=== PATIENT | male | born 1955 | race Caucasian/White ===

== ENCOUNTER 2020-12-28 12:08 | Observation (INO) | payer MEDICARE, MEDICAID, SELFPAY ==
[2020-12-28] VITALS (10 sets, daily range): BP systolic 106–130; BP diastolic 61–77; PULSE 71–115; RESP 16–20; TEMP 36.6–37.1; O2SAT 94–100; BMI 19.0; BMI 17.6
--- NOTE | 2020-12-28 12:22 | CT_ITS ---
PROCEDURE: CT HEAD/BRAIN WO CON CLINICAL INDICATION: AMS Altered mental status, altered level of consciousness, confusion, disorientation COMPARISON: No exams were available for comparison TECHNIQUE: Axial images obtained. All CT scans at the facility use one or more dose reduction, viz: automated exposure control, ma/kV adjustment per patient size (including targeted exams where dose is matched to indication, i.e. head), or iterative reconstruction technique. FINDINGS: No midline shift, mass effect, intracranial hemorrhage, or extra-axial fluid collection is evident. There is generalized atrophy with hypoattenuation of the periventricular white matter consistent with microangiopathic changes. The ventricles are slightly prominent but may be due to the mild degree of atrophy. Small subtle area of decreased density is present in the anterior limb of the right internal capsule. This measures 5 mm. Subacute or chronic lacunar infarction is considered. The calvarium has an unremarkable appearance. No mastoid effusion. No sinus air-fluid level. IMPRESSION: 1. No definite acute intracranial findings. 2. Possible subacute or chronic small lacunar infarction in the anterior limb of the right internal capsule. Dictated by: Farooq Nieto MD 12/28/2020 12:51 Farooq Nieto MD in [place] 12/28/2020 12:51
--- NOTE | 2020-12-28 12:24 | HMH.EDGENADL ---
ED Disposition Clinical Impression: Brain ischemia Anemia Qualifiers: Anemia type: unspecified type Qualified Code(s): D64.9 - Anemia, unspecified Disposition: Admitted As Inpatient Condition on Discharge: Good - Critical Care Critical Care Time: No Attestation: On 12/28/20, the high probability of a clinically significant, sudden or life threatening deterioration of the following system(s) required my full and direct attention, intervention and personal management. The time I documented below is in addition to time spent performing reported procedures but includes the following listed in this critical care notation. Medical Decision Making - Medical Records Medical records reviewed: Yes: I reviewed the patient's medical records. - Ranjeet Inquiry Pt receiving controlled substance: No Vital Signs: 12/28/20 12:08 12/28/20 12:30 Temperature 98.3 F Temperature Source Oral Pulse Rate 106 H Pulse Rate [Right] 110 H Respiratory Rate 16 18 Blood Pressure 115/73 Blood Pressure [Right Arm] 113/68 Blood Pressure Mean 78 Blood Pressure Mean [Right Arm] 83 02 Sat by Pulse Oximetry 95 97 Oxygen Delivery Method Room Air - Lab Data Lab results reviewed: Yes: I reviewed the patient's lab results. Lab Results 12/28/20 13:11: WBC 13.4 H, RBC 3.02 L, Hgb 7.8 L*, Hct 25.8 L, MCV 85.3, MCH 25.7 L, MCHC 30.2 L, RDW 18.0 H, Plt Count 548 H, MPV 7.4, Neut % (Auto) 88.8 H, Lymph % (Auto) 4.7 L, [place] % (Auto) 6.1, Eos % (Auto) 0.3, Baso % (Auto) 0.2, Neut # (Auto) 11.9 H, Lymph # (Auto) 0.6 L, [place] # (Auto) 0.8, Eos # (Auto) 0.1, Baso # (Auto) 0.0 12/28/20 13:11: Sodium 131 L, Potassium 3.8, Chloride 93 L, Carbon Dioxide 32 H, Anion Gap 9.8, BUN 25 H, Creatinine 0.80, Estimated Creat Clear 66, Estimated GFR 97, Est GFR ( Amer) 117, Glucose 138 H, Calcium 10.0, Total Bilirubin 0.4, AST 39, ALT 21, Alkaline Phosphatase 139 H, Total Protein 7.5, Albumin 3.0 L, Globulin 4.5 H, Albumin/Globulin Ratio 0.7 L 12/28/20 13:11: Plasma/Serum Alcohol < 10 12/28/20 13:12: Urine Color Yellow, Urine Appearance Clear, Urine pH 5.5, Ur Specific [place] >= 1.030, Urine Protein 1+, Urine Glucose (UA) Negative, Urine Ketones Negative, Urine Blood 2+, Urine Nitrate Negative, Urine Bilirubin 1+ A, Urine Urobilinogen 1.0, Ur Leukocyte Esterase Negative, Urine RBC 3-5, Urine WBC 3-5, Ur Squamous Epith Cells 3-5, Urine Bacteria None 12/28/20 13:12: Urine Opiates Screen Negative, Urine Methadone Screen Negative, Ur Barbituates Screen Negative, Ur Phencyclidine Scrn Negative, Ur Amphetamines Screen Negative, U Benzodiazepines Scrn Negative, Urine Cocaine Screen Negative, U Marijuana (THC) Screen Negative 12/28/20 13:34: Ammonia < 9 L Result diagrams: 12/28/20 13:11 12/28/20 13:11 Orders (Tests/Meds): ED MEDICATIONS Generic Name Dose Route Start Last Admin Trade Name Freq PRN Reason Stop Dose Admin Acetaminophen 650 mg 12/28/20 13:52 Acetaminophen 325mg Tab PO 01/27/21 13:51 Q4HP PRN Fever or Mild Pain Sodium Chloride 1,000 mls @ 999 mls/hr 12/28/20 13:15 12/28/20 13:19 Sod Chlor 0.9% 1000ml Bag IV 12/28/20 14:15 999 mls/hr .Q1H1M YENNI Administration Ondansetron HCl 4 mg 12/28/20 13:52 Ondansetron 4mg/2ml Vial IV 01/27/21 13:51 Q8HP PRN Nausea ORDERS Category Date Time Status Complete Blood Count Auto Diff Stat Lab 12/28/20 13:11 Results Comprehensive Metabolic Panel Stat Lab 12/28/20 13:11 Results Covid-19 Nasal PCR ([facility]) Routine Lab 12/28/20 13:50 Ordered Free T4 (Free Thyroxine) Stat Lab 12/28/20 13:11 Received Thyroid Stimulating Hormone Stat Lab 12/28/20 13:11 Results Troponin I Q3H Lab 12/28/20 15:30 Ordered Troponin I Q3H Lab 12/28/20 18:30 Ordered Troponin I Stat Lab 12/28/20 13:11 Results ECG Request by /Cuco Stat Y 12/28/20 12:20 Ordered - CT Data CT Scan: Head Time Received: 13:05 Findings Narrative: 1. No definite acute intracranial findings.
--- NOTE | 2020-12-28 12:34 | PC.NURSE ---
SPOKE WITH CHELSEY FROM [facility] AND RECEIVED A MORE ACCURATE MEDICAL HX
--- NOTE | 2020-12-28 13:03 | ECG_ITS ---
APPROVED REPORT Exam: Resting ECG HR:97 bpm ECG Measurements Heart Rate 97 AXES VA 106 P 79 QRSd 82 QRS 91 QT 328 T 65 QTc 416 Conclusion Sinus rhythm with short VA Rightward axis Minimal voltage criteria for LVH, may be normal variant Borderline ECG Electronically signed by : Boy Cho, 12/29/2020 09:07:06
[2020-12-28 13:23] LABS: Microscopic, Urine URINE MICROSCOPIC (MICROSCOPIC)
[2020-12-28 13:27] LABS: Basophils % 0.2 % (0.1-2.0); Eosinophils # 0.1 K/mm3 (0.0-0.4); Eosinophils % 0.3 % (0.1-12.0); Hematocrit 25.8 % (42.0-52.0); Lymphocytes # 0.6 K/mm3 (0.7-4.5); Lymphocytes % 4.7 % (10-50); Mean Corpuscular HGB Conc 30.2 g/dL (31.8-35.4); Mean Corpuscular Hemoglobin 25.7 pg (27.0-31.2); Mean Corpuscular Volume 85.3 fl (80-94); Mean Platelet Volume 7.4 fl (7.4-10.4); Monocytes # 0.8 K/mm3 (0.1-1.0); Monocytes % 6.1 % (1.7-9.3); Neutrophils # 11.9 K/mm3 (1.8-7.8); Neutrophils % 88.8 % (37.0-80.0); Platelet Count 548 K/mm3 (142-424); Red Blood Count 3.02 M/mm3 (4.60-6.20); White Blood Count 13.4 K/mm3 (4.8-10.8)
[2020-12-28 13:29] LABS: Appearance,Urine CLEAR (Clear); Bilirubin,Urine 1+ (Negative); Blood, Urine 2+ (Negative); Color,Urine YELLOW (Yellow); Glucose,Urine (UA) Negative (Negative); Ketones,Urine Negative (Negative); Leukocyte Esterase,Urine Negative (Negative); Nitrate,Urine Negative (Negative); PH,Urine 5.5 (5.0-8.5); Protein,Urine 1+ (Negative); Specific Gravity, Urine >= 1.030 (1.005-1.030)
[2020-12-28 13:34] LABS: Hemoglobin 7.8 g/dL (14.1-18.0)
[2020-12-28 13:35] LABS: Chloride 93 mmol/L (98-107); MANUAL DIFFERENTIAL MANUAL DIFFERENTIAL (MANUAL DIFF); Potassium 3.8 mmoL/L (3.5-5.1); Sodium 131 mmol/L (136-145)
[2020-12-28 13:38] LABS: Alanine Aminotransferase 21 U/L (12-78); Albumin/Globulin Ratio 0.7 (1.1-1.8); Alkaline Phosphatase 139 U/L (38-126); Anion Gap 9.8 mEq/L (5-15); Aspartate Amino Transferase 39 U/L (17-59); Bilirubin,Total 0.4 mg/dl (0.2-1.3); Blood Urea Nitrogen 25 mg/dl (9-20); Carbon Dioxide 32 mmol/L (22.0-30.0); Creatinine Clearance Estimated 66 mL/min (50-200); Estimated Glomerular Filt Rate 97 ml/min (>60); GFR (African American) 117 ML/MIN (>60); Globulin 4.5 g/dL (1.3-3.2); Total Protein,Serum 7.5 g/dl (6.3-8.2)
[2020-12-28 13:39] LABS: Glucose 138 mg/dl (74-100)
[2020-12-28 13:40] LABS: Ethyl Alcohol < 10 mg/dl (0-10)
[2020-12-28 13:41] LABS: Amphetamine/Metha Screen,Urine Negative ng/ml (<1000); Benzodiazepines Screen,Urine Negative ng/ml (<200)
[2020-12-28 13:43] LABS: Cannabinoid Screen,Urine Negative ng/ml (<50)
[2020-12-28 13:44] LABS: Cocaine Screen,Urine Negative ng/ml (<300); Methadone Screen,Urine Negative ng/ml (<300)
[2020-12-28 13:46] LABS: Phencyclidine Screen,Urine Negative ng/ml (<25)
[2020-12-28 13:50] LABS: Barbiturates Screen,Urine Negative ng/ml (<200)
--- NOTE | 2020-12-28 13:50 | PC.NURSE ---
Dr Altman spoke with Dr Mcnamara
[2020-12-28 13:51] LABS: Ammonia < 9 umol/L (9-30)
[2020-12-28 13:53] LABS: Opiate Screen,Urine Negative ng/ml (<300)
[2020-12-28 13:59] LABS: Troponin I < 0.01 ng/ml (0.00-0.034)
--- NOTE | 2020-12-28 14:00 | PC.NURSE ---
Staff senior human resources representative from [facility] notified of admission and provided the name of the state guardian (Mary Alice Bear).
--- NOTE | 2020-12-28 14:09 | PC.NURSE ---
Went in room to swab pt for covid for admission, pt refused to have swab done stating that he had been vaccinated and he didn't need to be swabbed. Pt is also refusing to be admitted. Stating that he doesn't need to be admitted he has been here before and not admitted. Pt nurse Jose comes into room and is able to get pt to agree to do the swab.
--- NOTE | 2020-12-28 14:14 | PC.NURSE ---
GLENYS HADDAD, PT STATE GUARDIAN NOTIFIED OF ADMISSION AND GLENYS INFORMED EM LINCOLN THAT SHE WILL OBTAIN A COURT ORDER FOR ADMISSION IF THE PATIENT REFUSES
--- NOTE | 2020-12-28 14:53 | PC.NURSE ---
GLENYS HADDAD (STATE GUARDIAN) CONSENTED TO ADMISSION
[2020-12-28 15:03] LABS: Lymphocytes % 4 % (10-50); Monocytes % 9 % (2-9); Neutrophils % 87 % (42-76); Total Cells Counted 100
[2020-12-28 15:04] LABS: Hypochromasia 2+; Microcytosis 1+; Platelet Estimate Slight Increase; Spherocytes 1+
[2020-12-28 15:41] LABS: Thyroid Stimulating Hormone 0.99 uIU/mL (0.465-4.68)
--- NOTE | 2020-12-28 16:21 | PC.NURSE ---
25 mins left on covid swab per ivelisse in the lab.
--- NOTE | 2020-12-28 17:02 | PC.NURSE ---
GAVE REPORT TO MISTY FLOOR NURSE AT THIS TIME
--- NOTE | 2020-12-28 17:04 | PC.NURSE ---
165 Report received from LATONIA Garcia in ER.
--- NOTE | 2020-12-28 17:26 | PC.NURSE ---
1718 Pt transported to room 202 via wheelchair by [facility] staff, tolerated transport well. 1722 Lab personnel at bedside with pt.
--- NOTE | 2020-12-28 17:29 | PC.NURSE ---
1728 SRNA informed RN that he is refusing to wear a heart monitor, said there is no need in all of this. Pt cooperating with lab personnel at this time, will continue to monitor.
[2020-12-28 17:54] LABS: Free T4 (Free Thyroxine) 2.05 ng/dl (0.78-2.19)
--- NOTE | 2020-12-28 18:24 | PC.NURSE ---
While discussing code status with pt, he decides that he wants to be a DNR. RN discussed full code status with pt and he said I don't have a bad heart. Discussed with pt in the event that he became unresponsive, is staff able to do chest compressions and other life saving measures, pt reported no, that's all right. Let me go. Pt is a velazquez of the state, will discuss with guardian.
--- NOTE | 2020-12-28 18:33 | PC.NURSE ---
183 Attempted to call Mary Alice Bear, guardian, no answer.
--- NOTE | 2020-12-28 18:40 | PC.NURSE ---
1840 Unable to get in contact with state guardian to verify code status, pt will remain a full code at this time.
--- NOTE | 2020-12-28 18:51 | PC.NURSE ---
1851 Spoke to after hours state guardianship, verified that pt is a full code.
--- NOTE | 2020-12-28 19:02 | XR_ITS ---
PROCEDURE INFORMATION: Exam: XR Chest Exam date and time: 12/28/2020 7:02 PM Age: 65 years old Clinical indication: Other: Abnormal cxr, smoker TECHNIQUE: Imaging protocol: XR of the chest. Views: 1 view. COMPARISON: No relevant prior studies available. FINDINGS: Lungs: Near complete opacification of the left upper lobe is present with interstitial prominence noted throughout both lungs. Underlying mass within the left upper lobe cannot be excluded. The lungs are hyperinflated, consistent with underlying small airways disease. Bronchiectatic changes noted within the lung bases. Pleural spaces: Unremarkable. No pleural effusion. No pneumothorax. Heart/Mediastinum: Calcified hilar lymph nodes. Bones/joints: The thoracic spine demonstrates mild degenerative changes at multiple levels. IMPRESSION: 1. Near complete opacification of the left upper lobe is present with interstitial prominence noted throughout both lungs. 2. Underlying mass within the left upper lobe cannot be excluded. Further evaluation with CT of the chest with and without contrast is recommended. 3. The lungs are hyperinflated, consistent with underlying small airways disease. 4. Bronchiectatic changes noted within the lung bases.
--- NOTE | 2020-12-28 19:05 | ECG_ITS ---
APPROVED REPORT Exam: Resting ECG HR:112 bpm ECG Measurements Heart Rate 112 AXES CO 124 P 85 QRSd 84 QRS 93 QT 302 T 69 QTc 412 Conclusion Sinus tachycardia Rightward axis Borderline ECG Electronically signed by : Byo Cho, 12/29/2020 09:06:40
--- NOTE | 2020-12-28 19:07 | HMH.HP ---
*Admission Date: 12/28/20 *Chief complaint: near syncope *History of present illness: This 65-year-old male who presents to the emergency department from assisted living for concerns of possible seizure. Patient states he did not have a seizure and remembers the entire episode. He has not been drinking much water for 2 weeks because he does not think that it tastes good. He states that he felt really hot today, so he laid down on the ground and was shaking from the heat, but remembers the entire episode. He does not have any urinary symptoms, no chest pain or shortness of breath. He has not had any recent fevers or vomiting, no diarrhea. He has no known history of seizures. No headache and there was no postictal state. FSBS 177 Labs that show anemia. We later received report from the assisted living facility that he has had some concerning findings on chest x-ray for possible pathology, cancer considered, but patient has been refusing CT scan of the chest. Anemia could be anemia of chronic disease, but this will need further evaluation and work-up. CT scan of the head shows subacute versus chronic lacunar infarct. Patient has no lateralizing motor or sensory changes and this can be further evaluated inpatient as well. Certainly not an acute CVA and not a candidate for TPA. I discussed this case with Dr. Mcnamara and patient will be admitted for further management. The patient is a very poor historian, is not forthcoming with a lot of information. He denies that he has a seizure disorder, and denies that he had a seizure. Patient underwent a CT of his brain. Results are as follows FINDINGS: No midline shift, mass effect, intracranial hemorrhage, or extra-axial fluid collection is evident. There is generalized atrophy with hypoattenuation of the periventricular white matter consistent with microangiopathic changes. The ventricles are slightly prominent but may be due to the mild degree of atrophy. Small subtle area of decreased density is present in the anterior limb of the right internal capsule. This measures 5 mm. Subacute or chronic lacunar infarction is considered. The calvarium has an unremarkable appearance. No mastoid effusion. No sinus air-fluid level. IMPRESSION: 1. No definite acute intracranial findings. 2. Possible subacute or chronic small lacunar infarction in the anterior limb of the right internal capsule. She was reported to have an abnormal chest x-ray. He adamantly refused CT imaging of his chest. We will try to get a portable film tonight. He reports that he is eating and drinking without problems. By history given to the emergency room his p.o. intake has been diminished for the last 2 weeks. We will hydrate him with IV fluid to supplement his p.o. intake. Denies nausea vomiting emesis or chest pain. We will hope that he is cooperative with a chest film. Attempt to get a portable x-ray tonight to further delineate findings. Patient is alert and verbal. He denies headache, chest pain, dyspnea, abdominal pain. His facial fractions are symmetric. His motor expert is 5 out of 5 bilaterally. He raises both feet against gravity, dorsiflexes and plantar flexes the feet. He appears to have no focal neurologic deficit. [facility] History Medical History: Reports:: Hypertension *Have you ever received a pneumonia vaccine?: No *Have you received a flu vaccine this season?: Yes Other Medical History: Reports: Anemia, Other (Psychiatric history) - *Social History Last grade of school completed: High school graduate Smoking Status: Current every day smoker Tobacco Type: cigarettes # Packs/Day (cigarettes): 1 Alcohol Intake: never *Occupational Status:: unemployed Housing: assisted living facility *Travel in the last 8 weeks: None Family Hx:: Unable to obtain Review of Systems - Constitutional Reports anorexia, Reports malaise - Eyes Denies change in vision - ENT Denies abnormal hearing, Denies h
[2020-12-28 19:50] LABS: Iron 20 ug/dL (49-181)
[2020-12-28 20:00] LABS: Total Iron Binding Capacity 265 ug/dL (261-462)
[2020-12-28 20:08] LABS: Valproic Acid, (Depakene) < 10.0 ug/ml (50-100)
--- NOTE | 2020-12-28 20:20 | PC.NURSE ---
WITH PT ASSESSMENT,IT WAS GIVEN IN REPORT PT HAD 2 IV ACCESSES RAC AND LAC,PT REPORTS THEY JUST FELL OUT AND HE DID NOT NEED THEM ANYWAY,DRINKING WATER WAS ALL HE NEEDED.TECH SAID THAT HE HAD PULLED THE IV OUT WHEN SHE TRIED TO GET V/S ,HE HAD REFUSED V/S TOO,BUT AGREED TO THEM JUST THIS ONCE,SEE CHARTING.TOLD HIM THAT HE HAD FLUIDS ORDERED AND HE REALLY NEEDED AN IV,PT REFUSED TO BE STUCK.
--- NOTE | 2020-12-28 22:40 | PC.NURSE ---
AFTER SEVERAL ATTEMPTS TO REACH ABOUT PT PULLING HIS IVS OUT AND WAS REFUSING TO HAVE THEM RESTARTED,WAS ABLE TO LET HIM KNOW THIS AND HE SAID TO JUST DOCUMENT PT REFUSED
[2020-12-29 03:58] VITALS: BP 116/67; PULSE 114; RESP 20; TEMP 36.9; O2SAT 92
--- NOTE | 2020-12-29 04:09 | PC.NURSE ---
PT HAS REFUSED CARE ALL NIGHT,WAS ABLE TO GET PT TO LET ME GET HIS V/S THIS MORNING AND LISTEN TO HIS LUNGS AGAIN,V/S 116/67,P-114 PALPATED RADIAL,R-20,SAT.LEVEL ON RA 92%,ORAL TEMP 98.5,DIMINISHED ON RIGHT SIDE AND RHONCI ON LEFT,PT REPORTS HE IS ABLE TO GET SOME SPUTUM UP AT TIMES AND IT IS CLEAR,PT HAS VOIDED IN URINAL 450 DARK YELLOW URINE.PT REFUSED TO HAVE HIS IV RESTARTED AGAIN.HAD PT TAKE ANOTHER BIG DRINK OF WATER SINCE HE IS NOT LETTING US GIVE HIM FLUIDS,PT DENIES ANY PAIN AT THIS TIME,WILL CONTINUE TO MONITOR
[2020-12-29 06:47] LABS: Basophils % 0.1 % (0.1-2.0); Hematocrit 26.5 % (42.0-52.0); Hemoglobin 8.2 g/dL (14.1-18.0); Lymphocytes # 1.1 K/mm3 (0.7-4.5); Mean Corpuscular HGB Conc 31.1 g/dL (31.8-35.4); Mean Corpuscular Hemoglobin 26.2 pg (27.0-31.2); Mean Corpuscular Volume 84.1 fl (80-94); Mean Platelet Volume 7.5 fl (7.4-10.4); Monocytes # 0.6 K/mm3 (0.1-1.0); Monocytes % 4.8 % (1.7-9.3); Neutrophils # 11.4 K/mm3 (1.8-7.8); Neutrophils % 87.1 % (37.0-80.0); Platelet Count 542 K/mm3 (142-424); Red Blood Count 3.15 M/mm3 (4.60-6.20); Red Cell Distribution Width 18.2 % (11.5-17.5); White Blood Count 13.1 K/mm3 (4.8-10.8)
[2020-12-29 06:51] LABS: MANUAL DIFFERENTIAL MANUAL DIFFERENTIAL (MANUAL DIFF)
[2020-12-29 06:55] LABS: Alanine Aminotransferase 26 U/L (12-78); Albumin Level 2.9 g/dl (3.5-5.0); Albumin/Globulin Ratio 0.6 (1.1-1.8); Alkaline Phosphatase 145 U/L (38-126); Anion Gap 6.5 mEq/L (5-15); Aspartate Amino Transferase 44 U/L (17-59); Bilirubin,Total 0.5 mg/dl (0.2-1.3); Blood Urea Nitrogen 17 mg/dl (9-20); Calcium 9.7 mg/dl (8.4-10.2); Carbon Dioxide 32 mmol/L (22.0-30.0); Chloride 95 mmol/L (98-107); Creatinine Clearance Estimated 61 mL/min (50-200); Estimated Glomerular Filt Rate 113 ml/min (>60); GFR (African American) 137 ML/MIN (>60); Globulin 4.5 g/dL (1.3-3.2); Glucose 110 mg/dl (74-100); Potassium 4.5 mmoL/L (3.5-5.1); Sodium 129 mmol/L (136-145); Total Protein,Serum 7.4 g/dl (6.3-8.2)
--- NOTE | 2020-12-29 07:13 | P.CONPHA_ITS ---
[facility] Pharm[facility] VTE Monitoring - Patient Demographics Admission date: 12/29/20 Report Date: 12/29/20 Time: 07:13 Allergies/Adverse Reactions: Patient Allergies No Known Allergies Allergy (Unverified 07/29/17 14:12) Height: 1.83 m Weight: 58.967 kg Patient Problems: Current Active Problems Anemia (Acute) Brain ischemia (Acute) Anemia (Chronic) - VTE Risk Labs: VTE Related Lab Results Hgb 8.2 g/dL (14.1-18.0) L 12/29/20 06:18 Hct 26.5 % (42.0-52.0) L 12/29/20 06:18 Plt Count 542 K/mm3 (142-424) H 12/29/20 06:18 BUN 17 mg/dl (9-20) D 12/29/20 06:18 Creatinine 0.70 mg/dl (0.66-1.25) 12/29/20 06:18 Estimated Creat Clear 61 mL/min (50-200) 12/29/20 06:18 VTE Score: 1 VTE Risk Level: Low Risk Clinical Trial Participant: No - Prophylaxis VTE Prophylaxis Ordered?: Yes Types of VTE Prophylaxis: TEDS Knee High
--- NOTE | 2020-12-29 07:16 | HMH.PHAINT ---
home medication list from [facility] used to clarify home medication list at [facility]
[2020-12-29 07:26] LABS: Thyroid Stimulating Hormone 0.71 uIU/mL (0.465-4.68)
[2020-12-29 07:41] VITALS: BP 107/61; PULSE 129; RESP 22; TEMP 36.9; O2SAT 93
--- NOTE | 2020-12-29 08:21 | CT_ITS ---
PROCEDURE: CT CHEST WO CON CLINICAL INDICATION: MASS Evaluate left upper lobe mass COMPARISON: CR XR CHEST PORTABLE from 12/28/2020 TECHNIQUE: Axial images obtained with sagittal and coronal reformats. All CT scans at the facility use one or more dose reduction, viz: automated exposure control, ma/kV adjustment per patient size (including targeted exams where dose is matched to indication, i.e. head), or iterative reconstruction technique. FINDINGS: IV contrast was not utilized for the exam somewhat limiting evaluation of the pulmonary findings. Enlarged mediastinal lymph nodes are present. The nodes in the AP window measure up 2 2.5 by 1.3 cm. Precarinal nodes are also present. There is a large area of masslike consolidation involving the left upper lobe with extension into the left axilla with destruction of the left 2nd rib laterally. There is also some destruction of the posterior aspect of the left 2nd rib. There are overall dimension of this masslike area of consolidation is 20 cm cephalad caudad, 10 cm transverse, and up to 12 cm AP. Multiple cavities are present within this large mass the largest measuring approximately 4 cm. There are few air-fluid levels within these areas of cavitation. There is dense consolidation involving the left lower lobe adjacent to the mass with also consolidation of the left lower lobe posteriorly with prominent interstitial markings having a somewhat honeycomb appearance. There are numerous noncalcified nodules of the right upper and lower lobe. There is a minimally offset fracture involving the left 6th rib laterally. The soft tissue mass of the left upper lobe extends into the left chest wall and axillary region. There is some cavitation noted within this mass in the axilla. IMPRESSION: Large complex left upper lobe mass with cavitation, rib destruction and extension into the left axilla with some soft tissue gas in the left axilla which may be related to cavitation, necrosis, or abscess involvement. This large mass may be neoplastic in nature as there are multiple small nodular densities in the right upper and right lower lobe suspicious for metastasis. Fungal infection and tuberculosis is included in the differential diagnosis. Left lower lobe pneumonia with somewhat honeycomb appearance Dictated by: Farooq Nieto MD 12/29/2020 09:20 Farooq Nieto MD in [place] 12/29/2020 09:20
[2020-12-29 09:18] VITALS: BMI 17.6
[2020-12-29 09:32] LABS: Hypochromasia 2+; Lymphocytes % 9 % (10-50); Monocytes % 6 % (2-9); Neutrophils % 85 % (42-76); Platelet Estimate Moderate Increase; Total Cells Counted 100
--- NOTE | 2020-12-29 09:37 | SW/DCPLANNER ---
Addendum entered by [facility] 01/02/21 15:01: [facility] [employer] has stated that they will pick this patient up between 4:30PM-5:00PM. I have relayed message to patients nurse (Mar). Addendum entered by [facility] 01/02/21 12:30: I have arranged [facility] [employer] for this patient. ID# [id number] Addendum entered by [facility] 01/02/21 10:07: I have notified patients Guardian (Mary Alice) and left regarding possible cancer diagnosis and discharging back to [facility] today. I have also notified Evelina with [facility] that this patient will discharge back today. Evelina has stated for me to call her back when discharge order is in and she will arrange transportation for this patient. Patient will discharge later today. Original Note: This patient currently resides at [facility]. I have attempted to contact Evelina at [facility] with no answer. I have spoke with patients State Guardian (Mary Alice Bear [phone]). I have informed Mary Alice that the plan for today is: PT/OT Consult, Pulm Consult and Chest CT due to mass on chest x ray. Mary Alice stated that patients family MD is Dr Mike Maria with [facility] in [place]. Patient should discharge home later today and I have informed Mary Alice of this plan as well. I will continue to try to contact Evelina with [facility] regarding plan.
--- NOTE | 2020-12-29 10:26 | HMH.OTEV ---
OT Inpatient Evaluation Rehab OT IP Evaluation Start: 12/29/20 09:35 Freq: ONCE Status: Complete Protocol: Document 12/29/20 10:14 PEDRO (Rec: 12/29/20 10:26 PEDRO [id number]) Rehab OT IP Assessment Subjective History *Admission Date: 12/28/20 *Chief complaint: near syncope *History of present illness: This 65-year-old male who presents to the emergency department from assisted living for concerns of possible seizure. Patient states he did not have a seizure and remembers the entire episode. He has not been drinking much water for 2 weeks because he does not think that it tastes good. He states that he felt really hot today, so he laid down on the ground and was shaking from the heat, but remembers the entire episode. He does not have any urinary symptoms, no chest pain or shortness of breath. He has not had any recent fevers or vomiting, no diarrhea. He has no known history of seizures. No headache and there was no postictal state. FSBS 177 Labs that show anemia. We later received report from the assisted living facility that he has had some concerning findings on chest x-ray for possible pathology, cancer considered, but patient has been refusing CT scan of the chest. Anemia could be anemia of chronic disease, but this will need further evaluation and work-up. CT scan of the head shows subacute versus chronic lacunar infarct. Patient has no lateralizing motor or sensory changes and this can be further evaluated inpatient as well. Certainly not an acute CVA and not a
--- NOTE | 2020-12-29 10:31 | HMH.PTEV ---
Physical Therapy Evaluation Rehab PT IP Evaluation Start: 12/29/20 09:34 Freq: ONCE Status: Active Protocol: Document 12/29/20 10:23 LATOYAJACQUE (Rec: 12/29/20 10:30 [email or web address] [id number]) Subjective/History History History Patient is a 65 year old male admitted to [facility] 12/28/20 after a fall at SNF. Admitting diagnosis of anemia and sub- acute CVA. Most recent CT scan indicates large L upper lobe mass. Subjective Subjective I feel fine. I just get a little short of breath. No dizziness reported with ambulation. Rehab PT IP Eval Objective Appearance Patient Behavior Appropriate Speech Pattern Appropriate Ambulation Patient Able to Ambulate Yes Ambulation Observation IP General Gait Pattern Observation No Deviations/Normal Ambulation Distance (feet) 100 Ambulation Assistive Device None Ambulation Ability Independent Balance Ability to Arise Able, w/o using arms Sitting Balance Steady, safe Standing Balance Narrow stance w/o support Dynamic Sitting Balance Ability Normal Dynamic Standing Balance Ability Normal Transfers Chair Transfer Ability Independent Sit to Stand Chair Transfer Ability Independent ROM All Extremities PT ROM Status WFL MMT All Extremities PT MMT WFL Rehab PT IP prob,goals,plan Problems Date of Evaluation: 12/29/20 Rehab Potential Rehab Potential Good Equipment Needs Assistive Devices None / NA Discharge Plan PT Discharge Plan Patient is independent with all transfers, standing and ambulatory activites. PT suggests discharge back to SNF for continued rehabilitation. G -code Required No Eval Complexity Eval Charge Codes 89591 - Moderate Complexity PHYSICIAN CERTIFICATION: I certify the specified therapy services for Dima Henley are required, authorized, and reviewed every 30 days.
--- NOTE | 2020-12-29 12:05 | HMH.PULMCON ---
*Admission Date: 12/29/20 *Reason for consult:: Lung mass, pneumonia *History of present illness: is a 65-year-old male greater than [id number] smoking history currently smoking, large enough state was presented to the hospital with weakness and shortness of breath found to have a large left upper lobe complicated mass with associated abscess and pulmonary was called for further management. [facility] History Medical History: Reports:: Hypertension *Have you ever received a pneumonia vaccine?: No *Have you received a flu vaccine this season?: Yes Other Medical History: Reports: Anemia, Other (Psychiatric history) - *Social History Last grade of school completed: High school graduate Smoking Status: Current every day smoker Tobacco Type: cigarettes # Packs/Day (cigarettes): 1 Alcohol Intake: never *Occupational Status:: unemployed Housing: assisted living facility *Travel in the last 8 weeks: None Family Hx:: Unable to obtain ROS - Cons Reports anorexia, Reports fatigue, Reports lack of energy, Reports weakness - ENT Reports hearing loss - Card Reports shortness of breath, Reports shortness of breath with activity - Resp Respiratory: Reports cough, Reports dyspnea, Reports dyspnea on exertion, Denies coughing up blood, Reports cough with sputum production - Musk Musculoskeletal: Reports joint pain Meds Home Medications Medication Instructions Recorded Confirmed Type Albuterol Sulfate [Albuterol 1 puff PO Q4HP PRN 12/28/20 12/29/20 History Sulfate Hfa] Cholecalciferol (Vitamin D3) 2,000 units PO DAILY 12/28/20 12/28/20 History [Vitamin D3 1,000 Unit Cap] Divalproex Sodium [Depakote] 250 mg PO HS 12/28/20 12/29/20 History Potassium Chloride 10 meq PO BID 12/28/20 12/29/20 History hydrOXYzine HCL [Hydroxyzine HCl] 50 mg PO HS 12/28/20 12/28/20 History risperiDONE [Risperidone] 3 ml PO BID 12/28/20 12/28/20 History Cyclobenzaprine HCl 5 mg PO TIDP PRN 12/29/20 12/29/20 History [Cyclobenzaprine 5mg Tab*] Allergies Allergy/AdvReac Type Severity Reaction Status Date / Time No Known Allergies Allergy Unverified 07/29/17 14:12 Exam - Constitutional Constitutional:: Present: no acute distress, comfortable - HENMT Exam HENMT: Present: normocephalic, atraumatic - Neck Exam Neck:: Present: normal visual inspection - Respiratory Exam Respiratory:: Present: able to speak in complete sentences, no respiratory distress, crackles. Absent: wheezing - Cardiovascular Exam Cardiac:: Present: S1, S2 - GI Exam GI:: Present: soft - Skin Exam Skin: Present: warm, no rash - Neurological Exam Neurological: Present: alert, awake, normal cognition - Extremities Exam Extremities: Present: no cyanosis, no clubbing, no edema Internal Medicine - CN: Reslt - Labs CBC & Chem 7: 12/29/20 06:18 12/29/20 06:18 Labs: Short CBC 12/28/20 12/29/20 Range/Units 13:11 06:18 WBC 13.4 H 13.1 H (4.8-10.8) K/mm3 Hgb 7.8 L* 8.2 L (14.1-18.0) g/dL Hct 25.8 L 26.5 L (42.0-52.0) % Plt Count 548 H 542 H (142-424) K/mm3 BMP 12/28/20 12/29/20 13:11 06:18 Sodium 131 L 129 L Potassium 3.8 4.5 Chloride 93 L 95 L Carbon Dioxide 32 H 32 H BUN 25 H 17 D Creatinine 0.80 0.70 Glucose 138 H 110 H D Calcium 10.0 9.7 Cardiac Enzymes 12/28/20 Range/Units 13:11 Troponin I < 0.01 (0.00-0.034) ng/ml Liver Function 12/28/20 12/29/20 Range/Units 13:11 06:18 Total Bilirubin 0.4 0.5 (0.2-1.3) mg/dl AST 39 44 (17-59) U/L ALT 21 26 (12-78) U/L Alkaline Phosphatase 139 H 145 H (38-126) U/L Albumin 3.0 L 2.9 L (3.5-5.0) g/dl Urine 12/28/20 Range/Units 13:12 Urine Color Yellow (Yellow) Urine Appearance Clear (Clear) Urine pH 5.5 (5.0-8.5) Ur Specific [place] >= 1.030 (1.005-1.030) Urine Protein 1+ (Negative) Urine Glucose (UA) Negative (Negative) Assessment and Plan (1) Anemia Stat
--- NOTE | 2020-12-29 14:39 | DIET.NUTRFU ---
Addendum entered by Neha Sharma 01/01/21 12:43: Pt has eaten very well, 100% of most meals + BID protein supplements. Weight stable. He has not had a BM and does not remember date of last BM. No changes nutritional care plan at this time, continuing to monitor. Original Note: Pt with severe protein calorie malnutrition rt unknown etiology (possible lung cancer) with recent significantly decreased PO intake and loss of 8% BW. Regular diet with BID supplements and moderate soft modifications given, will monitor and alter as indicated. Diet edu/counseling for malnutrition provided, will follow further findings and f/u with pt t/o stay.
--- NOTE | 2020-12-29 14:40 | PC.NURSE ---
Pt given hypertonic saline neb treatment at this time to induce sputum. Pt cough dry and renderer results at this time. Cup was placed at pt bedside with the undestanding of placing samlpe in said cup.
[2020-12-29 16:00] VITALS: BP 106/60; PULSE 114; RESP 21; TEMP 36.8; O2SAT 96
--- NOTE | 2020-12-29 16:17 | PC.NURSE ---
Addendum entered by Mar Balderas RN 12/29/20 16:21: PER DR. SOUZA, BRONCHOSCOPY WILL HAPPEN ON 01/01/2021 Original Note: PATIENT HAS BEEN PLEASANT DURING THIS RN SHIFT, A&O X3, LUNGS: STRIDOR HEARD IN BILATERAL UPPER AND MIDDLE. PULSES ARE EQUAL. PATIENT HAS RESTED DURING THIS RN SHIFT. NO NEW ISSUES OR CONCERNS AT THIS TIME.
--- NOTE | 2020-12-29 19:38 | HMH.ACPN2 ---
Internal Medicine - PN: Subj *Date: 12/29/20 *Time: 19:48 Interval history: 65-year-old male patient resting quietly in bed, he denies any chest pain or shortness of breath during the night. He denies any needs/concerns at present. Room air saturation 92%. Explained to patient importance of having CT, lab work, and imaging. Patient agrees to this he is a very poor historian and frequently contradicts himself. Exam Vital signs and Labs for Last 24 Hours: Temp Pulse Resp BP Pulse Ox 98.3 F 114 H 21 106/60 L 96 12/29/20 16:00 12/29/20 16:00 12/29/20 16:00 12/29/20 16:00 12/29/20 16:00 Laboratory Results - last 24 hr 12/28/20 13:11: Total Valproic Acid < 10.0 L 12/28/20 13:11: Iron 20 L, TIBC 265, Iron Saturation 7.61956 L 12/29/20 06:18: WBC 13.1 H, RBC 3.15 L, Hgb 8.2 L, Hct 26.5 L, MCV 84.1, MCH 26.2 L, MCHC 31.1 L, RDW 18.2 H, Plt Count 542 H, MPV 7.5, Neut % (Auto) 87.1 H, Lymph % (Auto) 8.0 L, [place] % (Auto) 4.8, Eos % (Auto) 0.0 L, Baso % (Auto) 0.1, Neut # (Auto) 11.4 H, Lymph # (Auto) 1.1, [place] # (Auto) 0.6, Eos # (Auto) 0.0, Baso # (Auto) 0.0, Total Counted 100, Neutrophils % (Manual) 85 H, Lymphocytes % (Manual) 9 L, Monocytes % (Manual) 6, Platelet Estimate Moderate increase, Hypochromasia 2+ 12/29/20 06:18: Sodium 129 L, Potassium 4.5, Chloride 95 L, Carbon Dioxide 32 H, Anion Gap 6.5, BUN 17 D, Creatinine 0.70, Estimated Creat Clear 61, Estimated GFR 113, Est GFR ( Amer) 137, Glucose 110 H D, Calcium 9.7, Total Bilirubin 0.5, AST 44, ALT 26, Alkaline Phosphatase 145 H, Total Protein 7.4, Albumin 2.9 L, Globulin 4.5 H, Albumin/Globulin Ratio 0.6 L, TSH 0.71 D I & O for Last 24 hours: Intake & Output 12/26/20 12/27/20 12/28/20 12/29/20 23:59 23:59 23:59 23:59 Intake Total 360 / 360 720 / 720 Output Total 1450 / 1450 Balance 360 / 360 -730 / -730 Weight 130 lb 130 lb 1.164 oz Microbiology Reports for the Last 24 Hours: Microbiology 12/28/20 14:00 Nasopharyngeal Coronavirus COVID-19 PCR - Final - Constitutional no acute distress, thin, chronically ill appearing, disheveled - *Routine HEENT Exam Head: Present: normocephalic Eye: Present: EOMI ENT: Present: mucous membranes moist - *Routine Neck Exam Present: trachea midline. Absent: tracheal deviation - *Routine Respiratory Exam Present: decreased breath sounds - *Routine Cardiovascular Exam Present: RRR - *Routine Abdominal Exam Present: soft, normoactive bowel sounds, rigid. Absent: tenderness - *Routine Extremities Exam Present: full ROM, pulses intact. Absent: cyanosis, clubbing, edema, calf tenderness - *Routine Skin Exam Present: intact, dry, warm. Absent: cyanosis, erythema - *Routine Neurological Exam Present: alert, altered mental status. Absent: motor deficit - Routine Psychiatric Exam Absent: unable to assess Assessment and Plan (1) Anemia Status: Chronic Qualifiers: Anemia type: unspecified type Qualified Code(s): D64.9 - Anemia, unspecified Category: Medical Code(s): D64.9 - Anemia, unspecified (2) Chest mass Status: Acute Category: Medical Code(s): R22.2 - Localized swelling, mass and lump, trunk (3) Tobacco abuse Status: Acute Category: Medical Code(s): Z72.0 - Tobacco use (4) Severe malnutrition Status: Acute Category: Medical Code(s): E43 - Unspecified severe protein-calorie malnutrition (5) Seizure Status: Acute Category: Medical Code(s): R56.9 - Unspecified convulsions - Assessment and plan all Dx Assessment and Plan for all problems:: Rounded with Dr. Alva, all orders per Dr. Alva: 1. Chest CT 2. Consult pulmonology
[2020-12-29 20:00] VITALS: BP 117/60; PULSE 126; RESP 20; RESP 21; TEMP 37.6; O2SAT 97
[2020-12-30] VITALS (14 sets, daily range): BP systolic 100–125; BP diastolic 57–76; PULSE 107–124; RESP 20–204; TEMP 36.1–36.9; O2SAT 92–97; BMI 17.6
--- NOTE | 2020-12-30 00:28 | PC.NURSE ---
upon entering room to hang antibiotic,a puddle of something was in the floor,pt reports he spilled his water,his gown was aslo in the floor,pt had unhooked his iv fluids from his lock.reconnected iv tubing after cleaning hub.clean gown placed on pt and the floor was cleaned.pt had been up to use his urinal and there was 500ml dark yellow urine noted.
--- NOTE | 2020-12-30 04:32 | PC.NURSE ---
Patient resting in bed showing no s/s of acute distress; vital signs WNL; voices no concerns; bed in lower level, call light within reach; will continue to monitor.
[2020-12-30 10:08] LABS: Basophils % 0.1 % (0.1-2.0); Lymphocytes # 0.5 K/mm3 (0.7-4.5); Monocytes # 0.5 K/mm3 (0.1-1.0); Monocytes % 4.6 % (1.7-9.3); Neutrophils # 10.5 K/mm3 (1.8-7.8); Neutrophils % 91.3 % (37.0-80.0); White Blood Count 11.5 K/mm3 (4.8-10.8)
[2020-12-30 10:13] LABS: Hematocrit 25.2 % (42.0-52.0); Mean Corpuscular HGB Conc 30.1 g/dL (31.8-35.4); Mean Corpuscular Hemoglobin 25.5 pg (27.0-31.2); Mean Corpuscular Volume 84.8 fl (80-94); Mean Platelet Volume 7.1 fl (7.4-10.4); Platelet Count 471 K/mm3 (142-424); Red Blood Count 2.98 M/mm3 (4.60-6.20); Red Cell Distribution Width 18.1 % (11.5-17.5)
[2020-12-30 10:14] LABS: Chloride 96 mmol/L (98-107); Sodium 132 mmol/L (136-145)
[2020-12-30 10:15] LABS: Potassium 4.5 mmoL/L (3.5-5.1)
[2020-12-30 10:17] LABS: Blood Urea Nitrogen 17 mg/dl (9-20); Creatinine Clearance Estimated 61 mL/min (50-200); Estimated Glomerular Filt Rate 113 ml/min (>60); GFR (African American) 137 ML/MIN (>60); Hemoglobin 7.6 g/dL (14.1-18.0)
[2020-12-30 10:18] LABS: Anion Gap 8.5 mEq/L (5-15); Calcium 9.4 mg/dl (8.4-10.2); Carbon Dioxide 32 mmol/L (22.0-30.0); Glucose 140 mg/dl (74-100); MANUAL DIFFERENTIAL MANUAL DIFFERENTIAL (MANUAL DIFF)
[2020-12-30 10:37] LABS: Hypochromasia 2+; Lymphocytes % 4 % (10-50); Monocytes % 3 % (2-9); Neutrophils % 93 % (42-76); Platelet Estimate Slight Increase; Total Cells Counted 100
--- NOTE | 2020-12-30 13:16 | P.PN_ITS ---
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1, Neut # (Auto) 10.5 H, Lymph # (Auto) 0.5 L, [place] # (Auto) 0.5, Eos # (Auto) 0.0, Baso # (Auto) 0.0, Total Counted 100, Neutrophils % (Manual) 93 H, Lymphoc ytes % (Manual) 4 L, Monocytes % (Manual) 3, Platelet Estimate Slight increase, Hypochromasia 2+ 12/30/20 09:52: Sodium 132 L, Potassium 4.5, Chloride 96 L, Carbon Dioxide 32 H, Anion Gap 8.5, BUN 17, Creatinine 0.70, Estimated Creat Clear 61, Estimated GFR 113, Est GFR ( Amer) 137, Glucose 140 H, Calcium 9.4 12/30/20 09:52: Blood Type Confirm O Positive I & O for Last 24 hours: Intake & Output 12/27/20 12/28/20 12/29/20 12/30/20 23:59 23:59 23:59 23:59 Intake Total 360 / 360 720 / 720 720 / 720 Output Total 1450 / 1950 1900 / 1900 Balance 360 / 360 -730 / -1230 -1180 / -1180 Weight 130 lb 130 lb 1.164 oz 130 lb 1.164 oz - Constitutional cachectic, chronically ill appearing - *Routine HEENT Exam Head: Present: normocephalic Eye: Present: EOMI, PERRL ENT: Present: mucous membranes moist - *Routine Neck Exam Present: supple. Absent: lymphadenopathy - *Routine Respiratory Exam Present: decreased breath sounds. Absent: accessory muscle use, wheezes - *Routine Cardiovascular Exam Present: RRR - *Routine Abdominal Exam Present: soft. Absent: tenderness - *Routine Extremities Exam Absent: cyanosis, clubbing, edema - *Routine Skin Exam Present: warm. Absent: rash - *Routine Neurological Exam Present: alert, oriented X3 Assessment and Plan (1) Anemia Status: Chronic Qualifiers: Anemia type: unspecified type Qualified Code(s): D64.9 - Anemia, unspecified Category: Medical Code(s): D64.9 - Anemia, unspecified (2) Chest mass Status: Acute Category: Medical Code(s): R22.2 - Localized swelling, mass and lump, trunk (3) Tobacco abuse Status: Acute Category: Medical Code(s): Z72.0 - Tobacco use (4) Severe malnutrition Status: Acute Category: Medical Code(s): E43 - Unspecified severe protein- calorie malnutrition (5) Seizure Status: Acute Category: Medical Code(s): R56.9 - Unspecified convulsions - Assessment and plan all Dx Assessment and Plan for all problems:: We will follow hemoglobin posttransfusion. We will continue Zosyn per IV We will proceed with pulmonary service recommendations.
--- NOTE | 2020-12-30 16:04 | PC.NURSE ---
PATIENT TOLERATED BLOOD TRANSFUSION WELL. PATIENT AMBULATES IN ROOM, GAIT STEADY. PATIENT HAS BEEN VERY COOPERATIVE DURING THIS RN SHIFT. PATIENT IS A&O X3, LUNGS: INSPIRATORY AND EXPIRATORY RHONCHI HEARD. PULSES ARE EQUAL. NO NEW CONCERNS AT THIS TIME.
[2020-12-30 16:23] LABS: Hematocrit 26.3 % (42.0-52.0); Hemoglobin 8.1 g/dL (14.1-18.0)
--- NOTE | 2020-12-30 20:37 | PC.NURSE ---
Patient saturation at 2034 was 90% and pt states SOA, RT applied 2 L n/c will continue to monitor.
--- NOTE | 2020-12-30 21:25 | PC.NURSE ---
Reassessment of Patient O2 2 L is now 97%. Will continue to monito.
[2020-12-31 04:00] VITALS: BP 115/69; PULSE 108; RESP 17; TEMP 36.6; O2SAT 97
[2020-12-31 04:58] VITALS: BMI 17.4
[2020-12-31 07:51] VITALS: BP 103/64; PULSE 113; RESP 20; TEMP 36.3; O2SAT 97
[2020-12-31 08:43] LABS: Basophils % 0.3 % (0.1-2.0); Eosinophils % 0.1 % (0.1-12.0); Hemoglobin 8.5 g/dL (14.1-18.0); Lymphocytes # 0.5 K/mm3 (0.7-4.5); Lymphocytes % 4.7 % (10-50); Mean Corpuscular HGB Conc 30.5 g/dL (31.8-35.4); Mean Corpuscular Hemoglobin 25.7 pg (27.0-31.2); Mean Corpuscular Volume 84.4 fl (80-94); Mean Platelet Volume 7.8 fl (7.4-10.4); Monocytes # 0.5 K/mm3 (0.1-1.0); Monocytes % 3.9 % (1.7-9.3); Neutrophils # 10.3 K/mm3 (1.8-7.8); Platelet Count 503 K/mm3 (142-424); Red Blood Count 3.32 M/mm3 (4.60-6.20); Red Cell Distribution Width 17.5 % (11.5-17.5); White Blood Count 11.4 K/mm3 (4.8-10.8)
[2020-12-31 08:44] LABS: MANUAL DIFFERENTIAL MANUAL DIFFERENTIAL (MANUAL DIFF)
--- NOTE | 2020-12-31 08:53 | P.PN_ITS ---
Internal Medicine - PN: Subj *Date: 01/01/21 *Time: 07:12 Interval history: pt with no specific c/o this am - feels weak - awaiting labs - Exam Vital signs and Labs for Last 24 Hours: Temp Pulse Resp BP Pulse Ox 97.4 F L 113 H 20 103/64 L 97 12/31/20 07:51 12/31/20 07:51 12/31/20 07:51 12/31/20 07:51 12/31/20 07:51 Laboratory Results - last 24 hr 12/28/20 17:29: Blood Type O Positive, Antibody Screen Negative, Crossmatch (AHG) See Detail 12/30/20 09:52: WBC 11.5 H, RBC 2.98 L, Hgb 7.6 L*, Hct 25.2 L, MCV 84.8, MCH 25.5 L, MCHC 30.1 L, RDW 18.1 H, Plt Count 471 H, MPV 7.1 L, Neut % (Auto) 91.3 H, Lymph % (Auto) 4.0 L, [place] % (Auto) 4.6, Eos % (Auto) 0.0 L, Baso % (Auto) 0.1, Neut # (Auto) 10.5 H, Lymph # (Auto) 0.5 L, [place] # (Auto) 0.5, Eos # (Auto) 0.0, Baso # (Auto) 0.0, Total Counted 100, Neutrophils % (Manual) 93 H, Lymphocytes % (Manual) 4 L, Monocytes % (Manual) 3, Platelet Estimate Slight increase, Hypochromasia 2+ 12/30/20 09:52: Sodium 132 L, Potassium 4.5, Chloride 96 L, Carbon Dioxide 32 H, Anion Gap 8.5, BUN 17, Creatinine 0.70, Estimated Creat Clear 61, Estimated GFR 113, Est GFR ( Amer) 137, Glucose 140 H, Calcium 9.4 12/30/20 09:52: Blood Type Confirm O Positive 12/30/20 15:52: Hgb 8.1 L, Hct 26.3 L 12/31/20 08:33: WBC 11.4 H, RBC 3.32 L, Hgb 8.5 L, Hct 28.0 L, MCV 84.4, MCH 25.7 L, MCHC 30.5 L, RDW 17.5, Plt Count 503 H, MPV 7.8, Neut % (Auto) 91.0 H, Lymph % (Auto) 4.7 L, [place] % (Auto) 3.9, Eos % (Auto) 0.1, Baso % (Auto) 0.3, Neut # (Auto) 10.3 H, Lymph # (Auto) 0.5 L, [place] # (Auto) 0.5, Eos # (Auto) 0.0, Baso # (Auto) 0.0 I & O for Last 24 hours: Intake & Output 12/28/20 12/29/20 12/30/20 12/31/20 11:59 11:59 11:59 11:59 Intake Total 720 / 720 720 / 720 3279 / 3279 Output Total 690 / 690 1960 / 2660 3675 / 3675 Balance -1240 / -1940 -396 / -396 Weight 130 lb 1.164 oz 130 lb 1.164 oz 129 lb Microbiology Reports for the Last 24 Hours: Microbiology 12/29/20 10:30 Sputum - Expectorated Sputum Gram Stain - Final 12/29/20 10:30 Sputum - Expectorated Sputum Sputum Culture - Preliminary - Constitutional no acute distress - *Routine HEENT Exam Head: Present: normocephalic Eye: Present: EOMI, PERRL ENT: Present: mucous membranes dry - *Routine Neck Exam Present: supple - *Routine Respiratory Exam Present: decreased breath sounds - *Routine Cardiovascular Exam Present: RRR - *Routine Abdominal Exam Present: soft - *Routine Extremities Exam Present: full ROM - *Routine Skin Exam Present: intact - *Routine Neurological Exam Present: alert, CN II-XII intact - Routine Psychiatric Exam Present: normal affect Assessment and Plan (1) Anemia Status: Chronic Qualifiers: Anemia type: unspecified type Qualified Code(s): D64.9 - Anemia, unspecified Category: Medical Code(s): D64.9 - Anemia, unspecified (2) Chest mass Status: Acute Category: Medical Code(s): R22.2 - Localized swelling, mass a nd lump, trunk (3) Tobacco abuse Status: Acute Category: Medical Code(s): Z72.0 - Tobacco use (4) Severe malnutrition Status: Acute Category: Medical Code(s): E43 - Unspecified severe protein- calorie malnutrition (5) Seizure Status: Acute Category: Medical Code(s): R56.9 - Unspecified convulsions
[2020-12-31 09:02] LABS: Anisocytosis 1+; Eosinophils % 1 % (0-3); Hypochromasia 3+; Lymphocytes % 3 % (10-50); Microcytosis 1+; Monocytes % 3 % (2-9); Neutrophils % 93 % (42-76); Platelet Estimate Normal; Total Cells Counted 100
[2020-12-31 15:26] VITALS: BP 109/65; PULSE 115; RESP 19; TEMP 36.7; O2SAT 98
--- NOTE | 2020-12-31 17:11 | PC.NURSE ---
PATIENT IS A&O X 4, LUNGS SOUND CLEARER THAN YESTERDAY. PULSES ARE EQUAL. PATIENT HAS SPIT UP BROWN WITH BLOOD STREAKS PHLEGM DURING THIS RN SHIFT. PATIENT HAS NO COMPLAINTS OF PAIN DURING THIS RN SHIFT. NO NEW CONCERNS AT THIS TIME.
[2020-12-31 19:53] VITALS: BP 115/64; PULSE 111; RESP 18; TEMP 36.7; O2SAT 95
[2020-12-31 20:00] VITALS: O2SAT 95
[2021-01-01] VITALS (29 sets, daily range): BP systolic 82–125; BP diastolic 40–87; PULSE 67–121; RESP 12–21; TEMP 36.2–36.8; O2SAT 92–99; BMI 17.2
--- NOTE | 2021-01-01 01:28 | PC.NURSE ---
He is A&Ox3. He continues in seizure precautions. He received PRN pain medication for reports of pain in his LUQ. He reports SOA. Continues on 2LPM n/c. He states that he cannot remember the date of his last BM. Intermittent productive cough with thick, yellowish, fletcher sputum.
[2021-01-01 07:37] LABS: Anion Gap 6.2 mEq/L (5-15); Blood Urea Nitrogen 15 mg/dl (9-20); Calcium 9.6 mg/dl (8.4-10.2); Carbon Dioxide 34 mmol/L (22.0-30.0); Chloride 96 mmol/L (98-107); Creatinine Clearance Estimated 60 mL/min (50-200); Estimated Glomerular Filt Rate 113 ml/min (>60); GFR (African American) 137 ML/MIN (>60); Glucose 99 mg/dl (74-100); Potassium 4.2 mmoL/L (3.5-5.1); Sodium 132 mmol/L (136-145)
[2021-01-01 07:48] LABS: Basophils % 0.1 % (0.1-2.0); Eosinophils % 0.1 % (0.1-12.0); Hematocrit 28.3 % (42.0-52.0); Hemoglobin 8.7 g/dL (14.1-18.0); Lymphocytes # 0.9 K/mm3 (0.7-4.5); Lymphocytes % 9.3 % (10-50); Mean Corpuscular HGB Conc 30.7 g/dL (31.8-35.4); Mean Corpuscular Hemoglobin 26.1 pg (27.0-31.2); Mean Platelet Volume 7.5 fl (7.4-10.4); Monocytes # 0.5 K/mm3 (0.1-1.0); Monocytes % 5.4 % (1.7-9.3); Neutrophils # 8.5 K/mm3 (1.8-7.8); Neutrophils % 85.1 % (37.0-80.0); Platelet Count 498 K/mm3 (142-424); Red Blood Count 3.33 M/mm3 (4.60-6.20); Red Cell Distribution Width 17.6 % (11.5-17.5)
[2021-01-01 07:50] LABS: MANUAL DIFFERENTIAL MANUAL DIFFERENTIAL (MANUAL DIFF)
[2021-01-01 08:30] LABS: Lymphocytes % 7 % (10-50); Monocytes % 3 % (2-9); Neutrophils % 90 % (42-76); Platelet Estimate Normal; RBC Morphology Normal; Total Cells Counted 100
--- NOTE | 2021-01-01 08:51 | HMH.PULMPN ---
Internal Medicine - PN: Subj *Date: 01/01/21 *Time: 12:40 Interval history: No acute respiratory vents overnight Exam - Constitutional Constitutional:: Present: no acute distress, comfortable - HENMT Exam HENMT: Present: normocephalic - Eye Exam Eyes:: Present: normal appearance both eyes and related structures - Neck Exam Neck:: Present: normal visual inspection - Respiratory Exam Respiratory:: Present: able to speak in complete sentences, no respiratory distress, decreased breath sounds, crackles - Cardiovascular Exam Cardiac:: Present: S1, S2 - Skin Exam Skin: Present: warm, no rash - Neurological Exam Neurological: Present: alert, awake, normal cognition - Extremities Exam Extremities: Present: no cyanosis, no clubbing, no edema Assessment and Plan (1) Anemia Status: Chronic Qualifiers: Anemia type: unspecified type Qualified Code(s): D64.9 - Anemia, unspecified Category: Medical Code(s): D64.9 - Anemia, unspecified (2) Chest mass Status: Acute Category: Medical Code(s): R22.2 - Localized swelling, mass and lump, trunk (3) Tobacco abuse Status: Acute Category: Medical Code(s): Z72.0 - Tobacco use (4) Severe malnutrition Status: Acute Category: Medical Code(s): E43 - Unspecified severe protein-calorie malnutrition (5) Seizure Status: Acute Category: Medical Code(s): R56.9 - Unspecified convulsions - Assessment and plan all Dx Assessment and Plan for all problems:: #Necrotizing pneumonia: #Lung mass: #Multiple pulmonary nodules: 65-year-old greater than [id number] smoker she presented to hospital with shortness of breath and found to have left upper lobe necrotizing morning along with possible mass in DAGO and left lower lobe interstitial changes. Possible left hilar lymphadenopathy along with station 7 noted. The right lung appeared normal except for multiple pulmonary nodules concerning for metastatic disease. Patient also admits significant weight loss for the last month. Patient has been following at [facility] unclear whether he has any prior imaging performed/any lung cancer screening performed so far. Patient admits baseline exertional dyspnea however only using albuterol as needed. No PFTs available for review. Sputum No organisms so far. BC growth 48 hrs Leucocytosis stable Plan: -Proceed with bronchoscopy,transbronchial biopsy and EBUS-FNA. 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 -Continue IV Zosyn -F/U Nasal MRSA PCR -TB QuantiFERON, serum fungal serologies, urine histo antigen and urine strep pneumonia antigen. -DuoNebs every 6 hours as needed Thank you for involving pulmonary in this patient care. We will continue to follow.
--- NOTE | 2021-01-01 09:40 | HMH.ACPN2 ---
Internal Medicine - PN: Subj *Date: 01/01/21 *Time: 08:10 Interval history: pt laying in bed states hes feeling a little better today Exam Vital signs and Labs for Last 24 Hours: Temp Pulse Resp BP Pulse Ox 97.3 F L 108 H 21 107/65 L 94 L 01/01/21 07:51 01/01/21 07:51 01/01/21 07:51 01/01/21 07:51 01/01/21 07:51 Laboratory Results - last 24 hr 01/01/21 07:14: WBC 10.0, RBC 3.33 L, Hgb 8.7 L, Hct 28.3 L, MCV 85.0, MCH 26.1 L, MCHC 30.7 L, RDW 17.6 H, Plt Count 498 H, MPV 7.5, Neut % (Auto) 85.1 H, Lymph % (Auto) 9.3 L, [place] % (Auto) 5.4, Eos % (Auto) 0.1, Baso % (Auto) 0.1, Neut # (Auto) 8.5 H, Lymph # (Auto) 0.9, [place] # (Auto) 0.5, Eos # (Auto) 0.0, Baso # (Auto) 0.0, Total Counted 100, Neutrophils % (Manual) 90 H, Lymphocytes % (Manual) 7 L, Monocytes % (Manual) 3, Platelet Estimate Normal, RBC Morphology Normal 01/01/21 07:14: Sodium 132 L, Potassium 4.2, Chloride 96 L, Carbon Dioxide 34 H, Anion Gap 6.2, BUN 15, Creatinine 0.70, Estimated Creat Clear 60, Estimated GFR 113, Est GFR ( Amer) 137, Glucose 99, Calcium 9.6 I & O for Last 24 hours: Intake & Output 12/29/20 12/30/20 12/31/20 01/01/21 11:59 11:59 11:59 11:59 Intake Total 720 / 720 720 / 720 3279 / 3279 1859 / 1859 Output Total 690 / 690 1960 / 2660 3675 / 3675 4050 / 4050 Balance -1240 / -1940 -396 / -396 -2191 / -2191 Weight 130 lb 1.164 oz 130 lb 1.164 oz 129 lb 127 lb Microbiology Reports for the Last 24 Hours: Microbiology 12/29/20 13:13 Nose - Nasal MRSA Culture - Final Negative 12/29/20 10:30 Sputum - Expectorated Sputum Gram Stain - Final 12/29/20 10:30 Sputum - Expectorated Sputum Sputum Culture - Preliminary 12/29/20 09:27 Blood Blood Culture - Preliminary NO GROWTH AFTER 48 HOURS 12/29/20 09:17 Blood Blood Culture - Preliminary NO GROWTH AFTER 48 HOURS - Constitutional no acute distress - *Routine HEENT Exam Head: Present: normocephalic Eye: Present: PERRL ENT: Present: mucous membranes moist - *Routine Neck Exam Present: supple. Absent: lymphadenopathy - *Routine Respiratory Exam Present: decreased breath sounds - *Routine Cardiovascular Exam Present: RRR - *Routine Abdominal Exam Present: soft, normoactive bowel sounds. Absent: tenderness - *Routine Extremities Exam Present: normal capillary refill. Absent: cyanosis, clubbing, edema - *Routine Skin Exam Present: warm. Absent: rash - *Routine Neurological Exam Present: alert, oriented X3 - Routine Psychiatric Exam Present: normal affect Assessment and Plan (1) Anemia Status: Chronic Qualifiers: Anemia type: unspecified type Qualified Code(s): D64.9 - Anemia, unspecified Category: Medical Code(s): D64.9 - Anemia, unspecified (2) Chest mass Status: Acute Category: Medical Code(s): R22.2 - Localized swelling, mass and lump, trunk (3) Tobacco abuse Status: Acute Category: Medical Code(s): Z72.0 - Tobacco use (4) Severe malnutrition Status: Acute Category: Medical Code(s): E43 - Unspecified severe protein-calorie malnutrition (5) Seizure Status: Acute Category: Medical Code(s): R56.9 - Unspecified convulsions - Assessment and plan all Dx Assessment and Plan for all problems:: rounded with dr royal all orders per dr royal consult pulm- plans for bronchoscopy,transbronchial biopsy and EBUS-FNA.
[2021-01-01 14:19] LABS: Histoplasma Gal'mannan Ag Ur <0.5 (<0.5 ng/mL)
--- NOTE | 2021-01-01 14:37 | XR_ITS ---
PROCEDURE: XR CHEST PORTABLE CLINICAL HISTORY: s/p bronchoscopy Follow-up bronchoscopy, left upper lobe mass COMPARISON: CR XR CHEST PORTABLE from 12/28/[address] CHEST WO CON from 12/29/2020 CR XR CHEST AP from 01/01/2021 FINDINGS: Left upper lobe cavitating mass once again noted with air extending into the axillary region. The axillary air on the left appears somewhat more prominent on today's exam. There is destruction of the left 2nd rib laterally. There is no evidence of pneumothorax status post bronchoscopy. COPD changes noted on the right. IMPRESSION: No evidence of pneumothorax status post bronchoscopy. Left mid and upper lung zone cavitating mass with axillary air once again noted Dictated by: Farooq Nieto MD 01/01/2021 14:51 Farooq Nieto MD in [place] 01/01/2021 14:51
--- NOTE | 2021-01-01 14:45 | P.PCN_ITS ---
- Procedure: Date: 01/01/21 Patient Date of :: 1955 Procedure Performed:: Bronchoscopy with bronchoalveolar lavage, transbronchial biopsy and EBUS FNA Indications:: Lung mass, necrotizing pneumonia Performing Provider:: Teddy Zapata MD Referring Provider:: Dr. Alva Sedation:: General anesthesia Procedure:: Bronchoscopy with bronchoalveolar lavage, transbronchial biopsy and EBUS FNA: Clean EBUS bronchoscopy was advanced the ET tube and lymph node surveillance was performed, patient noted lymphadenopathy in stations 10 L, station 7 and station 4L. EBUS FNA was performed on all history limitations on bedside pathology examination showed adequate lymphocytes however did not show any evidence of malignancy. EBUS bronchoscopy was retracted and a clean therapeutic bronchoscopy was advanced and airways were examined up to subsegmental bronchi, the right side airways appeared clear devoid of any mucoid secretions. Copious amount of secr etions were noted in the left upper lobe. Bronchoscopy with bronchoalveolar lavage was performed in the left upper lobe with return of mucoid secretions, and were sent for BAL differential along with Gram stain, fungal and AFB stains and cultures. Transbronchial biopsies were performed in the left lower lobe and left upper lobe and were sent for cytopathological examination along with bacterial fungal and AFB stain and cultures. Patient tolerated the procedure well. We will continue Zosyn awaiting infectious work-up to de-escalate antibiotics. Patient might need 6 weeks of antibiotic course as concerning for necrotizing pneumonia with a follow-up CT chest to document resolution. Findings:: Please see the procedure note Recommendations:: Please see the procedure note and progress note from today Complications:: None Estimated blood obtained (mL): 5
--- NOTE | 2021-01-01 15:31 | PC.NURSE ---
1442-radiology at bedside 1445-respiratory therapy at bedside to administer duoneb breathing tx as ordered per CHAPARRITA Meyer 1453-detailed report called to LATONIA Bermudez 1455-pt transported to 2nd floor via hospital bed w/aguila rails up per LATONIA Cartwright and LATONIA Elizondo and left in care of LATONIA Bermudez/LATONIA Do with bed locked in lowest position, vss, pt stable
[2021-01-01 17:09] LABS: Body Fluid Culture, Sterile Not indicated. (.); Organism ID Not indicated. (.); Specimen Source Urine (.); Streptococcus pneumoniae Ag Negative (Negative)
--- NOTE | 2021-01-01 17:16 | P.PN_ITS ---
[facility] Anesthesia Checklist - Patient Identification Patient Identification: Arm Band - Structural Data Admitted From: Inpatient Planned Operative Procedure/s: Bronchoscopy EBUS FNA Consent for Planned Operative Procedure(s) Verified: Yes Verified Documents: Surgical Consent, History and Physical - NPO Status Verified Time NPO: 00:00 - Airway Assessment C-Spine Mobility Assessed: Yes TMJ Mobility Assessed: Yes Dentition: Poor Dentition - Neurological Assessment Level of Consciousness: Awake, Alert - Anesthesia Plan Anesthesia Risk discussed: Yes Anesthesia Plan: Verified ASA Class: III Anesthesia Type: General [facility] History Medical History: Reports:: Hypertension *Have you ever received a pneumonia vaccine?: No *Have you received a flu vaccine this season?: Yes Other Medical History: Reports: Anemia, Other (Psychiatric history) Anesthesia experience/problems:: None - *Social History Last grade of school completed: High school graduate Smoking Status: Current every day smoker Tobacco Type: cigarettes # Packs/Day (cigarettes): 1 Alcohol Intake: never Substance Use Type: denies use *Occupational Status:: unemployed Housing: assisted living facility *Travel in the last 8 weeks: None Family Hx:: Unable to obtain
--- NOTE | 2021-01-01 17:18 | HMH.ANESI ---
[facility] Anesthesia Record Part I Intake, IV Amount: 700 Estimated blood loss (mL): 5 Urine output (mL): 0 Blood Pressure: 82/57 SaO2: 94 Pulse Rate: 110 Respiratory Rate: 12 Temperature: 97.6 F Patient is:: Awake, Drowsy Stable to PACU at:: 14:33
[2021-01-02] VITALS: BP 118/69; PULSE 74; RESP 20; TEMP 36.5; O2SAT 94
--- NOTE | 2021-01-02 00:52 | PC.NURSE ---
PT. HAS NOT C/O N/V/D, DIZZINESS OR PAIN. RESTING WITH EYES CLOSED AT THIS TIME. REPORT GIVEN TO Mariluz WARREN RN AT THIS TIME.
[2021-01-02 01:00] VITALS: BP 124/74; PULSE 74; RESP 20; TEMP 36.4; O2SAT 94
[2021-01-02 01:17] LABS: Hemoglobin 9.3 g/dL (14.1-18.0)
[2021-01-02 04:00] VITALS: BP 111/65; PULSE 83; RESP 16; TEMP 36.7; O2SAT 93
[2021-01-02 04:59] VITALS: BMI 17.2
[2021-01-02 06:48] LABS: Anion Gap 7.6 mEq/L (5-15); Blood Urea Nitrogen 22 mg/dl (9-20); Calcium 9.8 mg/dl (8.4-10.2); Carbon Dioxide 33 mmol/L (22.0-30.0); Chloride 99 mmol/L (98-107); Creatinine Clearance Estimated 60 mL/min (50-200); Estimated Glomerular Filt Rate 97 ml/min (>60); GFR (African American) 117 ML/MIN (>60); Glucose 123 mg/dl (74-100); Potassium 4.6 mmoL/L (3.5-5.1); Sodium 135 mmol/L (136-145)
[2021-01-02 06:49] LABS: Basophils % 0.4 % (0.1-2.0); Eosinophils % 0.1 % (0.1-12.0); Hematocrit 30.3 % (42.0-52.0); Hemoglobin 9.3 g/dL (14.1-18.0); Lymphocytes # 0.6 K/mm3 (0.7-4.5); Lymphocytes % 8.4 % (10-50); Mean Corpuscular HGB Conc 30.8 g/dL (31.8-35.4); Mean Corpuscular Volume 84.5 fl (80-94); Mean Platelet Volume 7.6 fl (7.4-10.4); Monocytes # 0.3 K/mm3 (0.1-1.0); Monocytes % 3.6 % (1.7-9.3); Neutrophils % 87.5 % (37.0-80.0); Platelet Count 552 K/mm3 (142-424); Red Blood Count 3.58 M/mm3 (4.60-6.20); White Blood Count 6.8 K/mm3 (4.8-10.8)
[2021-01-02 06:52] LABS: MANUAL DIFFERENTIAL MANUAL DIFFERENTIAL (MANUAL DIFF)
[2021-01-02 07:18] VITALS: BP 99/57; PULSE 101; TEMP 36.4
--- NOTE | 2021-01-02 07:18 | P.PN_ITS ---
[facility] Anesthesia Record Part II Discharge Time: 14:53 Destination: Surgical Day Care (OP Surgery) PACU nurse assessment reviewed?: Yes Patient Condition:: Good Anesthesia Complications:: None Swallowing reflex intact?: Yes Cyanosis?: No Blood Pressure: 99/57 Pulse Rate: 101 Temperature: 97.5 F Mental Status: Alert & Oriented Pain level:: 0 Nausea and/or vomitting:: None Intake, IV Amount: 700
[2021-01-02 07:22] VITALS: BP 106/67; PULSE 97; RESP 17; TEMP 36.5; O2SAT 94
--- NOTE | 2021-01-02 08:20 | HMH.ACPN ---
Internal Medicine - PN: Subj *Date: 01/02/21 *Time: 08:20 Exam Vital signs and Labs for Last 24 Hours: Temp Pulse Resp BP Pulse Ox 97.7 F 97 H 17 106/67 L 94 L 01/02/21 07:22 01/02/21 07:22 01/02/21 07:22 01/02/21 07:22 01/02/21 07:22 Laboratory Results - last 24 hr 12/29/20 09:50: U Histopl Galactoman Ag <0.5, Ref Test Comments Comment 12/29/20 09:50: Fluid Culture Not indicated., S. pneumoniae Antigen Negative, S. pneumoniae Ag Source Urine, Organism ID Not indicated. 01/01/21 07:14: Total Counted 100, Neutrophils % (Manual) 90 H, Lymphocytes % (Manual) 7 L, Monocytes % (Manual) 3, Platelet Estimate Normal, RBC Morphology Normal 01/01/21 15:30: Blood Type O Positive, Antibody Screen Negative, Crossmatch (AHG) See Detail 01/02/21 01:09: Hgb 9.3 L, Hct 30.0 L 01/02/21 06:23: WBC 6.8 D, RBC 3.58 L, Hgb 9.3 L, Hct 30.3 L, MCV 84.5, MCH 26.0 L, MCHC 30.8 L, RDW 17.0, Plt Count 552 H, MPV 7.6, Neut % (Auto) 87.5 H, Lymph % (Auto) 8.4 L, [place] % (Auto) 3.6, Eos % (Auto) 0.1, Baso % (Auto) 0.4, Neut # (Auto) 6.0, Lymph # (Auto) 0.6 L, [place] # (Auto) 0.3, Eos # (Auto) 0.0, Baso # (Auto) 0.0 01/02/21 06:23: Sodium 135 L, Potassium 4.6, Chloride 99, Carbon Dioxide 33 H, Anion Gap 7.6, BUN 22 H D, Creatinine 0.80, Estimated Creat Clear 60, Estimated GFR 97, Est GFR ( Amer) 117, Glucose 123 H D, Calcium 9.8 I & O for Last 24 hours: Intake & Output 12/30/20 12/31/20 01/01/21 01/02/21 23:59 23:59 23:59 23:59 Intake Total 1392 / 1392 2807 / 2807 3199 / 3472 2304 / 2304 Output Total 1900 / 1900 4075 / 4575 2950 / 2950 1050 / 1050 Balance -508 / -508 -1268 / -1768 249 / 522 1254 / 1254 Weight 59 kg 58.513 kg 57.606 kg 57.606 kg Microbiology Reports for the Last 24 Hours: Microbiology 01/01/21 Unknown Bronchial Washings Gram Stain - Final 01/01/21 Unknown Bronchial Lavage SHARAD Preparation - Final 01/01/21 Unknown Lung,Left Lower Lobe - Final Not Reportable 01/01/21 Unknown Lung,Left Lower Lobe - Final Not Reportable 01/01/21 Unknown Lung,Left Lower Lobe - Final Not Reportable 01/01/21 Unknown Lung,Left Lower Lobe - Final Not Reportable 01/01/21 Unknown Bronchial Lavage - Final Not Reportable 01/01/21 Unknown Bronchial Lavage Microbiology Comment - Final Not Reportable 12/29/20 13:13 Nose - Nasal MRSA Culture - Final Negative 12/29/20 10:30 Sputum - Expectorated Sputum Gram Stain - Final 12/29/20 10:30 Sputum - Expectorated Sputum Sputum Culture - Preliminary Assessment and Plan (1) Anemia Status: Chronic Qualifiers: Anemia type: unspecified type Qualified Code(s): D64.9 - Anemia, unspecified Category: Medical Code(s): D64.9 - Anemia, unspecified (2) Chest mass Status: Acute Category: Medical Code(s): R22.2 - Localized swelling, mass and lump, trunk (3) Tobacco abuse Status: Acute Category: Medical Code(s): Z72.0 - Tobacco use (4) Severe malnutrition Status: Acute Category: Medical Code(s): E43 - Unspecified severe protein-calorie malnutrition (5) Seizure Status: Acute Category: Medical Code(s): R56.9 - Unspecified convulsions The patient's infection will respond to the chosen ABx?: Yes Is the patient receiving the right drug, dose, and route?: Yes Could a more targeted ABx be ordered?: No (CONTINUE PER DR ARCOS)
--- NOTE | 2021-01-02 08:48 | HMH.DCSUM ---
General - General Admission date:: 12/28/20 Discharge date: 01/02/21 HPI HPI: This 65-year-old male who presents to the emergency department from assisted living for concerns of possible seizure. Patient states he did not have a seizure and remembers the entire episode. He has not been drinking much water for 2 weeks because he does not think that it tastes good. He states that he felt really hot today, so he laid down on the ground and was shaking from the heat, but remembers the entire episode. He does not have any urinary symptoms, no chest pain or shortness of breath. He has not had any recent fevers or vomiting, no diarrhea. He has no known history of seizures. No headache and there was no postictal state. FSBS 177 Labs that show anemia. We later received report from the assisted living facility that he has had some concerning findings on chest x-ray for possible pathology, cancer considered, but patient has been refusing CT scan of the chest. Anemia could be anemia of chronic disease, but this will need further evaluation and work-up. CT scan of the head shows subacute versus chronic lacunar infarct. Patient has no lateralizing motor or sensory changes and this can be further evaluated inpatient as well. Certainly not an acute CVA and not a candidate for TPA. I discussed this case with Dr. Mcnamara and patient will be admitted for further management. The patient is a very poor historian, is not forthcoming with a lot of information. He denies that he has a seizure disorder, and denies that he had a seizure. Patient underwent a CT of his brain. Results are as follows FINDINGS: No midline shift, mass effect, intracranial hemorrhage, or extra-axial fluid collection is evident. There is generalized atrophy with hypoattenuation of the periventricular white matter consistent with microangiopathic changes. The ventricles are slightly prominent but may be due to the mild degree of atrophy. Small subtle area of decreased density is present in the anterior limb of the right internal capsule. This measures 5 mm. Subacute or chronic lacunar infarction is considered. The calvarium has an unremarkable appearance. No mastoid effusion. No sinus air-fluid level. IMPRESSION: 1. No definite acute intracranial findings. 2. Possible subacute or chronic small lacunar infarction in the anterior limb of the right internal capsule. She was reported to have an abnormal chest x-ray. He adamantly refused CT imaging of his chest. We will try to get a portable film tonight. He reports that he is eating and drinking without problems. By history given to the emergency room his p.o. intake has been diminished for the last 2 weeks. We will hydrate him with IV fluid to supplement his p.o. intake. Denies nausea vomiting emesis or chest pain. We will hope that he is cooperative with a chest film. Attempt to get a portable x-ray tonight to further delineate findings. Patient is alert and verbal. He denies headache, chest pain, dyspnea, abdominal pain. His facial fractions are symmetric. His employee development specialist is 5 out of 5 bilaterally. He raises both feet against gravity, dorsiflexes and plantar flexes the feet. He appears to have no focal neurologic deficit. Hospital Course Hospital Course: This 65-year-old male who presents to the emergency department from assisted living for concerns of possible seizure. Patient states he did not have a seizure and remembers the entire episode. He has not been drinking much water for 2 weeks because he does not think that it tastes good. He states that he felt really hot today, so he laid down on the ground and was shaking from the heat, but remembers the entire episode. He does not have any urinary symptoms, no chest pain or shortness of breath. He has not had any recent fevers or vomiting, no diarrhea. He has no known history of seizures. No headache and there was no postictal state. FSBS 177
[2021-01-02 09:09] LABS: Anisocytosis 1+; Hypochromasia 1+; Lymphocytes % 9 % (10-50); Monocytes % 3 % (2-9); Neutrophils % 88 % (42-76); Platelet Estimate Normal; Total Cells Counted 100
--- NOTE | 2021-01-02 10:05 | P.PN_ITS ---
Internal Medicine - PN: Subj *Date: 01/02/21 *Time: 10:05 Interval history: No acute respiratory vents overnight. Exam - Constitutional Constitutional:: Present: no acute distress, cooperative - HENMT Exam HENMT: Present: normocephalic, atraumatic - Eye Exam Eyes:: Present: normal appearance both eyes and related structures - Neck Exam Neck:: Present: normal visual inspection - Respiratory Exam Respiratory:: Present: able to speak in complete sentences, no respiratory distress, decreased breath sounds - Cardiovascular Exam Cardiac:: Present: S1, S2 - GI Exam GI:: Present: soft - Skin Exam Skin: Present: warm, no rash, dry - Neurological Exam Neurological: Present: alert, awake, normal cognition - Extremities Exam Extremities: Present: no cyanosis, no clubbing, no edema Assessment and Plan (1) Anemia Status: Chronic Qualifiers: Anemia type: unspecified type Qualified Code(s): D64.9 - Anemia, unspecified Category: Medical Code(s): D64.9 - Anemia, unspecified (2) Chest mass Status: Acute Category: Medical Code(s): R22.2 - Localized swelling, mass and lump, trunk (3) Tobacco abuse Status: Acute Category: Medical Code(s): Z72.0 - Tobacco use (4) Severe malnutrition Status: Acute Category: Medical Code(s): E43 - Unspecified severe protein- calorie malnutrition (5) Seizure Status: Acute Category: Medical Code(s): R56.9 - Unspecified convulsions - Assessment and plan all Dx Assessment and Plan for all problems:: #Necrotizing pneumonia: #Lung mass: #Multiple pulmonary nodules: #Mediastinal and hilar lymphadenopathy 65-year-old greater than [id number] smoker she presented to hospital with shortness of breath and found to have left upper lobe necrotizing pneumonia a long with lung mass with abscess, lung mass is eroding into the sixth rib with partial fracture and onto his chest wall musculature. Patient had a bronchoscopy with EBUS FNA on pulmonary exam did not show any evidence of malignancy. Sputum cultures and BAL so far negative for infectious etiology. Given that this patient is having negative EBUS FNA, given the appearance of cancer with erosion into adjacent structures is highly concerning for malignancy and patient will benefit from CT-guided biopsy of the lung mass. Nasal MRSA PCR negative. Urine histoplasma antigen negative. Urine strep pneumonia antigen negative. Plan: - Follow with bronchoscopy results. - Please schedule the patient for a CT-guided biopsy of the left lung mass. - De-escalate Zosyn to Augmentin 875 BID for total of 6 weeks for lung abscess - F/U TB QuantiFERON -Initiate LABA LAMA inhaler therapy (Anoro/Stiolto along with albuterol every 6 hours as needed) Thank you for involving pulmonary in this patient care. We will follow the patient in pulmonary clinic 1 to 2 weeks.
[2021-01-02 10:57] VITALS: BP 104/63; PULSE 90; RESP 17; TEMP 36.5; O2SAT 96
--- NOTE | 2021-01-02 12:25 | CT_ITS ---
PROCEDURE: CT CHEST W CON CLINCAL INDICATION: Lung mass COMPARISON: CT CT CHEST WO CON from 12/29/2020 TECHNIQUE: IV Contrast: 75ml Isovue 370 Axial images obtained with sagittal and coronal reformats. All CT scans at the facility use one or more dose reduction, viz: automated exposure control, ma/kV adjustment per patient size (including targeted exams where dose is matched to indication, i.e. head), or iterative reconstruction technique. FINDINGS: There remains masslike consolidation in the left upper lobe with cavitation an air-fluid levels. Soft tissue masslike area extends into the left axilla with air-fluid levels in the left axillary region. The cavitation in the left axillary region is somewhat worse compared to the previous exam. There is destruction of the posterior aspect of the left 2nd rib as well as the anterior aspect of the left 2nd rib. Air bronchograms are present in the left upper lobe medially. Consolidation is also present in the anterior aspect of the left lower lobe and the lateral aspect of the left lower lobe. There has been increasing cavitation in the lateral aspect of the left lower lobe. There remains a honeycomb appearance of the posterior aspect of the left lower lobe There are numerous noncalcified pulmonary nodules of the right upper lobe, right middle lobe, and right lower lobe. There is a small left pleural effusion. There is left-sided lung volume loss. There is thickening of the pericardium on the left. There are few mildly prominent mediastinal lymph nodes which are not significantly changed. There is left-sided thoracic volume loss compared to the right with decrease in size of the left hemithorax in the AP plane No evidence of aortic aneurysm or dissection. No evidence of pulmonary embolus. IMPRESSION: 1. Persistent masslike consolidation in the left apex and left upper lobe with extension into the lateral aspect of the left lower lobe and into the left axilla with increasing cavitation in the left upper lobe, left lower lobe and left axillary region and with destruction of the left 2nd rib posteriorly and anteriorly. These findings are most worrisome for an aggressive infectious process such as active tuberculosis or fungal infection such is pulmonary nocardiosis, blastomycosis, or actinimyces infection. Aggressive cavitating neoplasm with extension in the axilla would be included in the differential diagnosis. Cardiothoracic surgery consult may be in order. 2. Numerous small noncalcified nodular densities of the right lung suspicious for metastatic disease versus septic emboli. 3. Honeycomb pattern of the left lower lobe suggesting pulmonary fibrosis Dictated by: Farooq Nieto MD 01/02/2021 14:03 Farooq Nieto MD in [place] 01/02/2021 14:03
--- NOTE | 2021-01-02 14:40 | PC.NURSE ---
THIS RN PROVIDED REPORT TO ARTIE RIOS AT [facility]. THIS RN INFORMED ARTIE OF CT GUIDED BIOPSY MASS. THIS RN INFORMED ARTIE OF PRE OP REQUIREMENTS. ARTIE VERBALIZED AN UNDERSTANDING. THIS RN PROVIDED PATIENT WITH SAME INFORMATION. NO NEW CONCERNS AT THIS TIME.
[2021-01-02 18:09] LABS: Aspergillus flavus Negative (Neg:<1:1); Aspergillus fumigatus Negative (Neg:<1:1); Aspergillus niger Negative (Neg:<1:1)
[2021-01-04 05:50] LABS: Blastomyces Antibody Negative (Neg:<1:1); Fungitell(Beta D-Glucan) Serum 45 pg/mL (<80)
== END 2021-01-02 16:10 | disposition home or self-care (01) ==
LOC: ER 14:11 → 2ND 14:13
PROVIDERS: Internal Medicine Pulmonary Disease; Nurse Practitioner Family; Admitting Provider Family Medicine; Emergency Provider Emergency Medicine; Visit Provider Emergency Medicine
PROC: (CPT 31624; principal; 2021-01-01 11:30)
DX: C34.12 Malignant neoplasm of upper lobe, left bronchus or lung (principal); I10 Essential (primary) hypertension; F17.210 Nicotine dependence, cigarettes, uncomplicated; E43 Unspecified severe protein-calorie malnutrition; Z68.1 Body mass index [BMI] 19.9 or less, adult; Z79.899 Other long term (current) drug therapy; J18.9 Pneumonia, unspecified organism; D63.0 Anemia in neoplastic disease
CPT/HCPCS: 31624; 31628; 31653; 36415; 70450; 71045; 71250; 71260; 80048; 80053; 80164; 80305; 81001; 82140; 83540; 83550; 84439; 84443; 84484; 85007; 85014; 85018; 85025; 86480; 86606; 86612; 86850; 87040; 87070; 87081; 87102; 87116; 87186; 87205; 87206; 87220; 87385; 87449; 87899; 88172; 88173; 88305; 89051; 93005; 94640; 94760; 96365; 97162; 97165; 99284; G0378; J2405; J2543; J2710; P9016; Q9967; U0003

== ENCOUNTER 2021-01-30 15:02 | Inpatient (IN) | payer MEDICARE, MEDICAID, SELFPAY ==
[2021-01-30] VITALS (11 sets, daily range): BP systolic 142–173; BP diastolic 84–96; PULSE 76–92; RESP 16–22; TEMP 36.6; O2SAT 96–100; BMI 21.7; BMI 17.5
--- NOTE | 2021-01-30 15:11 | PC.NURSE ---
EMS gave 500cc bag of fluids
--- NOTE | 2021-01-30 15:18 | ECG_ITS ---
APPROVED REPORT Exam: Resting ECG HR:79 bpm ECG Measurements Heart Rate 79 AXES IN 110 P 83 QRSd 74 QRS 94 QT 336 T 82 QTc 385 Conclusion Sinus rhythm with short IN Possible Left atrial enlargement Rightward axis Nonspecific ST abnormality Abnormal ECG Electronically signed by : Boy Cho, 01/31/2021 17:39:15
--- NOTE | 2021-01-30 15:40 | XR_ITS ---
PROCEDURE: XR CHEST 2V CLINICAL HISTORY: dizziness COMPARISON: CR XR CHEST PORTABLE from 12/28/2020 CR XR CHEST PORTABLE from 01/01/2021 CR XR CHEST AP from 01/01/[address] CHEST W CON from 01/02/2021 FINDINGS: Normal heart size. Extensive peripheral left upper lobe and left apical consolidation once again noted with less dense consolidation in the central aspect of the left upper lobe. The axillary gas on the left is no longer apparent. Lucency surrounds the apical knob and may be due to prominent mediastinal fat as seen on a previous CT scan as opposed to a air. Prominence of the interstitium noted on the right with a few scattered nodular opacities as seen on the previous CT scan. No bony destructive process. IMPRESSION: Overall there has been some improvement in the consolidation in the left upper lobe centrally with persistent peripheral consolidation and improvement in the left axillary gas. Prominent interstitium in the right mid and upper lung zone with a few scattered small nodular opacities which may be inflammatory/infectious or due to metastatic foci. Dictated by: Farooq Nieto MD 01/30/2021 16:08 Farooq Nieto MD in [place] 01/30/2021 16:08
[2021-01-30 15:57] LABS: Basophils % 0.5 % (0.1-2.0); Eosinophils # 0.4 K/mm3 (0.0-0.4); Eosinophils % 4.7 % (0.1-12.0); Hematocrit 31.7 % (42.0-52.0); Hemoglobin 10.4 g/dL (14.1-18.0); Lymphocytes # 1.1 K/mm3 (0.7-4.5); Lymphocytes % 13.1 % (10-50); Mean Corpuscular HGB Conc 32.7 g/dL (31.8-35.4); Mean Corpuscular Hemoglobin 27.7 pg (27.0-31.2); Mean Corpuscular Volume 84.6 fl (80-94); Monocytes # 0.5 K/mm3 (0.1-1.0); Monocytes % 5.4 % (1.7-9.3); Neutrophils # 6.7 K/mm3 (1.8-7.8); Neutrophils % 76.3 % (37.0-80.0); Platelet Count 298 K/mm3 (142-424); Red Blood Count 3.75 M/mm3 (4.60-6.20); Red Cell Distribution Width 18.7 % (11.5-17.5); White Blood Count 8.7 K/mm3 (4.8-10.8)
[2021-01-30 16:01] LABS: Anion Gap 7.3 mEq/L (5-15); Blood Urea Nitrogen 29 mg/dl (9-20); Carbon Dioxide 34 mmol/L (22.0-30.0); Chloride 96 mmol/L (98-107); Creatinine Clearance Estimated 75 mL/min (50-200); Estimated Glomerular Filt Rate 75 ml/min (>60); GFR (African American) 90 ML/MIN (>60); Glucose 104 mg/dl (74-100); Potassium 4.3 mmoL/L (3.5-5.1); Sodium 133 mmol/L (136-145)
[2021-01-30 16:13] LABS: Troponin I 0.02 ng/ml (0.00-0.034)
[2021-01-30 16:23] LABS: Calcium 13.4 mg/dl (8.4-10.2)
--- NOTE | 2021-01-30 16:42 | HMH.EDGENADL ---
ED Disposition Clinical Impression: Hypercalcemia Squamous cell lung cancer Qualifiers: Laterality: left Qualified Code(s): C34.92 - Malignant neoplasm of unspecified part of left bronchus or lung Disposition: Admitted as Observation Condition on Discharge: Fair - Critical Care Critical Care Time: No Attestation: On 01/30/21, the high probability of a clinically significant, sudden or life threatening deterioration of the following system(s) required my full and direct attention, intervention and personal management. The time I documented below is in addition to time spent performing reported procedures but includes the following listed in this critical care notation. Medical Decision Making - Medical Records Medical records reviewed: Yes: I reviewed the patient's medical records. MR Comment: Reviewed discharge summary from recent admission and follow-up pulmonology office visit. Patient diagnosed with squamous cell cancer of his lung. Initial oncology visit with Dr. Horta scheduled for 02/01/2021. - Ranjeet Inquiry Pt receiving controlled substance: No Vital Signs: 01/30/21 15:03 01/30/21 15:30 Temperature 97.8 F Temperature Source Oral Pulse Rate 83 Pulse Rate [Left Radial] 92 H Respiratory Rate 18 16 Blood Pressure 145/88 H Blood Pressure [Right Arm] 142/84 H Blood Pressure Mean 109 Blood Pressure Mean [Right Arm] 103 Blood Pressure Source [Right Arm] Automatic Cuff Blood Pressure Position [Right Arm] Sitting 02 Sat by Pulse Oximetry 99 98 Oxygen Delivery Method Room Air - Lab Data Lab Results 01/30/21 15:45: Phosphorus 3.5, Magnesium 1.9 01/30/21 15:46: WBC 8.7, RBC 3.75 L, Hgb 10.4 L, Hct 31.7 L, MCV 84.6, MCH 27.7, MCHC 32.7, RDW 18.7 H, Plt Count 298, MPV 7.0 L, Neut % (Auto) 76.3, Lymph % (Auto) 13.1, [place] % (Auto) 5.4, Eos % (Auto) 4.7, Baso % (Auto) 0.5, Neut # (Auto) 6.7, Lymph # (Auto) 1.1, [place] # (Auto) 0.5, Eos # (Auto) 0.4, Baso # (Auto) 0.0 01/30/21 15:46: Sodium 133 L, Potassium 4.3, Chloride 96 L, Carbon Dioxide 34 H, Anion Gap 7.3, BUN 29 H, Creatinine 1.00, Estimated Creat Clear 75, Estimated GFR 75, Est GFR ( Amer) 90, Glucose 104 H, Calcium 13.4 H*, Troponin I 0.02 01/30/21 15:46: Total Bilirubin 0.6, Direct Bilirubin 0.5 H, Conjugated Bilirubin 0.0, Indirect Bilirubin 0.1, Unconjugated Bilirubin 0.1, AST 53, ALT 18, Alkaline Phosphatase 113, Total Protein 7.4, Albumin 3.4 L 01/30/21 15:46: PTH Intact 7.3 L, Total Valproic Acid < 10.0 L Result diagrams: 01/30/21 15:46 01/30/21 15:46 Orders (Tests/Meds): ED MEDICATIONS Discontinued Medications Generic Name Dose Route Start Last Admin Trade Name Freq PRN Reason Stop Dose Admin Sodium Chloride 1,000 mls @ 999 mls/hr 01/30/21 16:15 01/30/21 16:06 Sod Chlor 0.9% 1000ml Bag IV 01/30/21 17:15 999 mls/hr .[id number] YENNI Administration ORDERS Category Date Time Status Rapid PCR Covid and Flu A/B Stat Lab 01/30/21 17:30 Received Troponin I Q3H Lab 01/30/21 18:45 Ordered Troponin I Q3H Lab 01/30/21 21:45 Ordered - Radiology Data #1 Image(s): Chest Image Reviewed: Yes I have reviewed radiologist's interpretation PROCEDURE: XR CHEST 2V CLINICAL HISTORY: dizziness COMPARISON: CR XR CHEST PORTABLE from 12/28/2020 CR XR CHEST PORTABLE from 01/01/2021 CR XR CHEST AP from 01/01/[address] CHEST W CON from 01/02/2021 FINDINGS: Normal heart size. Extensive peripheral left upper lobe and left apical consolidation once again noted with less dense consolidation in the central aspect of the left upper lobe. The axillary gas on the left is no longer apparent. Lucency surrounds the apical knob and may be due to prominent mediastinal fat as seen on a previous CT scan as opposed to a air. Prominence of the interstitium noted on the right with a few scattered nodular opacities as seen on the previous CT scan. No bony destructive process. IMPRESSION: Overall there
[2021-01-30 17:03] LABS: Magnesium 1.9 mg/dl (1.6-2.3); Phosphorous 3.5 mg/dl (2.5-4.5)
--- NOTE | 2021-01-30 17:17 | PC.NURSE ---
Spoke with pt container finishing inspector guardian Ami Denton who states that she gives consent to admit/treat pt, verified with Antonio Spoke with Evelina Sood from [facility] about admission and verified with hx of pt. PT states that he does not have ca but per Evelina pt does have ca and updated in our records pt is to see oncologist on 02/01/21.
--- NOTE | 2021-01-30 17:28 | PC.NURSE ---
notified stock house worker of admission
[2021-01-30 17:37] LABS: Coronavirus 19, PCR Not Detected (NotDetected); Influenza A, PCR Not Detected (NotDetected); Influenza B, PCR Not Detected (NotDetected)
[2021-01-30 17:53] LABS: Alanine Aminotransferase 18 U/L (12-78); Albumin Level 3.4 g/dl (3.5-5.0); Alkaline Phosphatase 113 U/L (38-126); Aspartate Amino Transferase 53 U/L (17-59); Bilirubin,Direct 0.5 mg/dl (0.0-0.4); Bilirubin,Indirect 0.1 mg/dL (0.0-0.9); Bilirubin,Total 0.6 mg/dl (0.2-1.3); Bilirubin,Unconjugated 0.1 mg/dL (0.0-1.1); Total Protein,Serum 7.4 g/dl (6.3-8.2)
[2021-01-30 18:06] LABS: Intact Parathyroid Hormone 7.3 pg/mL (7.5-53.5)
[2021-01-30 18:09] LABS: Valproic Acid, (Depakene) < 10.0 ug/ml (50-100)
--- NOTE | 2021-01-30 18:12 | PC.NURSE ---
ordered pt a meal tray.
--- NOTE | 2021-01-30 19:58 | PC.NURSE ---
PT ARRIVED TO FLOOR VIA W/C FROM ED W/STAFF AT 1956
--- NOTE | 2021-01-31 01:00 | PC.NURSE ---
Addendum entered by Karolyn Mccallum RN 01/31/21 07:27: Patient stated he takes medication, but he is not sure what. I attempted to gain information from [facility] with no success. There is a med pack piece in his physical chart but could not tell me yes or no to taking those medications. There are several wrote down as well that are currently not listed due to the lack of information to be able to obtain. Medication review was unable to be verified. Original Note: Patient is alert and oriented x4, however patient is a poor historian. Upon admission patient was not able to tell me any medical history or a list of his medications. Patient's lung sounds are diminished and wheezy throughout. Patient was oriented to the room. I have attempted to contact [facility] care around [phone] and a person by the name of Evelina Sood at [phone], to obtain information. Neither phone numbers answered. All patient information obtained was from the ER admission and patient. Call light is within reach, seizure pads are in place, bed in lowest position.
[2021-01-31 04:43] VITALS: BP 145/82; PULSE 85; RESP 18; TEMP 36.7; O2SAT 97
[2021-01-31 05:00] VITALS: BMI 17.4
[2021-01-31 06:43] LABS: Chloride 101 mmol/L (98-107); Potassium 3.9 mmoL/L (3.5-5.1); Sodium 140 mmol/L (136-145)
[2021-01-31 06:46] LABS: Anion Gap 6.9 mEq/L (5-15); Blood Urea Nitrogen 23 mg/dl (9-20); Carbon Dioxide 36 mmol/L (22.0-30.0); Creatinine Clearance Estimated 50 mL/min (50-200); Estimated Glomerular Filt Rate 61 ml/min (>60); GFR (African American) 73 ML/MIN (>60); Glucose 106 mg/dl (74-100)
[2021-01-31 06:57] LABS: Calcium 14.4 mg/dl (8.4-10.2)
--- NOTE | 2021-01-31 07:04 | PC.NURSE ---
Vero from lab called at [phone] with a critical lab value for this patient. Patient name and date of was verified x2. Calcium of lab value 14.[address] Frankel was paged at [phone] and a call back was returned at [phone].
[2021-01-31 07:33] VITALS: BP 158/95; PULSE 82; RESP 16; TEMP 36.4; O2SAT 98
[2021-01-31 07:45] VITALS: PULSE 82; O2SAT 98
--- NOTE | 2021-01-31 08:00 | HMH.HP ---
*Admission Date: 01/30/21 <Grecia Paz - 01/31/21 08:44> *Chief complaint: Weakness; shortness of breath. <Grecia Paz - 01/31/21 08:44> *History of present illness: Mr. Gonzalez is a 66-year-old male patient with a recent diagnosis of lung cancer diagnosed during [facility] admission 12/28 to 01/02/2021. During this admission he was also noted to be anemic, possible seizure activity, severe malnutrition, and tobacco use disorder. He also has a history of schizophrenia and COPD. Patient is a very poor historian and denies having any heart, lung, and stomach issues. He states that he was just weak and had difficulty with walking. Following is the note from the emergency room: Brought in by ambulance from assisted living facility in [place]. The patient is a poor historian . Per prior records he has schizoaffective disorder. He says he is here because he is generally weak, especially his legs. He says that today his legs gave out on him. He says he did not pass out. He says he has not been eating and drinking well. Denies chest pain or shortness of breath. Denies vomiting or diarrhea. Denies fever. Complains of pain in his neck and back. Patient had follow-up visit with Dr. Zapata on 01/17/2021. He noted lung mass with abscess eroding into the 6th rib with partial fracture and into the chest wall musculature. An oncology appointment was scheduled. He was noted to use albuterol inhaler 3-4 times daily. On admission white blood cell count was 8700 with a hemoglobin of 10.4 hematocrit 31.7. Blood chemistries show sodium of 133 and potassium of 4.3. Calcium was 13.4 on admission and this a.m. is 14.4. PTH is low at 7.3. CXR results as follows: IMPRESSION: Overall there has been some improvement in the consolidation in the left upper lobe centrally with persistent peripheral consolidation and improvement in the left axillary gas. Prominent interstitium in the right mid and upper lung zone with a few scattered small nodular opacities which may be inflammatory/infectious or due to metastatic foci. He was admitted for IVF and calcium monitoring. This a.m. patient states he did not sleep much. He has eaten well for breakfast. He denies pain and shortness of breath. <Grecia Paz 01/31/21 09:31> [facility] History Medical History: Reports:: Chronic Obstructive Pulmonary Disease (COPD) (Schizophrenia), Hypertension, Seizures <Grecia Paz 01/31/21 09:31> *Have you ever received a pneumonia vaccine?: No <Grecia Paz 01/31/21 08:01> *Have you received a flu vaccine this season?: No <PazGrecia 01/31/21 08:01> Other Medical History: Reports: Anemia, Other <BrandiGrecia 01/31/21 08:01> Other Surgeries: Yes: No Previous Surgery <Paz,Grecia 01/31/21 08:44> - *Social History Smoking Status: Current every day smoker <PazGrecia 01/31/21 08:01> Tobacco Type: cigarettes <Paz,Grecia 01/31/21 08:01> # Packs/Day (cigarettes): 1 <BrandiGrecia 01/31/21 08:01> Alcohol Intake: never <PazGrecia 01/31/21 08:01> Substance Use Type: denies use <PazGrecia 01/31/21 08:01> *Occupational Status:: disabled <PazGrecia 01/31/21 08:01> Housing: assisted living facility <PazGrecia 01/31/21 08:01> *Travel in the last 8 weeks: None <BrandiGrecia 01/31/21 08:01> Family Hx:: no Cancer, no Diabetes <BrandiGrecia 01/31/21 08:44> Review of Systems - Constitutional Reports weakness, Denies fever(s) <BrandiGrecia 01/31/21 08:44> - Eyes Denies change in vision <Grecia Paz 01/31/21 08:44> - ENT Denies ear pain, Denies headache(s), Denies nasal congestion, Denies sore throat <Grecia Paz 01/31/21 08:44> - *Cardiovascular Denies chest pain, Denies shortness of breath <Grecia Paz 01/31/21 08:44> - *Respiratory Reports cough, Reports shortness of breath, Reports coughing up blood <Grecia Paz - 01/31/21 08:44> - *Gastrointestinal Denies abdominal pain, Rodrigo
[2021-01-31 13:30] VITALS: BMI 17.4
[2021-01-31 15:18] VITALS: BP 170/102; PULSE 89; RESP 16; TEMP 36.3; O2SAT 98
--- NOTE | 2021-01-31 19:03 | PC.NURSE ---
pt has been up and down in his room this shift. pt took a shower but no wet linens were noted and pt still smelled of old urine. tech offered to shower pt, who then refused. pt is a.o yet slightly disoriented as well. pt has unsteady gait. lungs are clear, bowels are active. nad
[2021-01-31 19:53] VITALS: BP 137/71; PULSE 94; RESP 16; TEMP 36.8; O2SAT 98
--- NOTE | 2021-02-01 03:00 | PC.NURSE ---
A&OX4. TOLERATING RA WELL. UP INDEPENDENTLY IN ROOM AT TIMES. PT HAS HAD NO C/O PAIN/NA/VO THUS FAR. PT SLEEPING MAJORITY OF SHIFT. VSS WILL CONTINUE TO MONITOR.
[2021-02-01 03:47] VITALS: BP 156/89; PULSE 89; RESP 16; TEMP 36.7; O2SAT 97
[2021-02-01 05:00] VITALS: BMI 17.4
--- NOTE | 2021-02-01 05:19 | PC.NURSE ---
PT IS MORE CONFUSED THIS AM. HE HAS PULLED AN IV OUT AND SEEMS LIKE HE IS NOT SURE WHERE HE IS AT. WILL CONTINUE TO MONITOR.
[2021-02-01 06:48] LABS: Chloride 101 mmol/L (98-107); Sodium 145 mmol/L (136-145)
[2021-02-01 06:49] LABS: Potassium 5.3 mmoL/L (3.5-5.1)
[2021-02-01 06:52] LABS: Anion Gap 12.3 mEq/L (5-15); Blood Urea Nitrogen 34 mg/dl (9-20); Carbon Dioxide 37 mmol/L (22.0-30.0); Creatinine Clearance Estimated 55 mL/min (50-200); Estimated Glomerular Filt Rate 67 ml/min (>60); GFR (African American) 81 ML/MIN (>60); Glucose 117 mg/dl (74-100)
[2021-02-01 07:03] LABS: Calcium 13.6 mg/dl (8.4-10.2)
--- NOTE | 2021-02-01 07:20 | PC.NURSE ---
RECEIVED CRITICAL, NAME AND VERIFIED WITH LAB. CALLED CRITICAL TO .
[2021-02-01 07:41] VITALS: BP 159/82; PULSE 89; RESP 18; TEMP 36.9; O2SAT 97
--- NOTE | 2021-02-01 08:36 | HMH.ACPN2 ---
<Jayla Wills - Last Filed: 02/01/21 08:36> Internal Medicine - PN: Subj *Date: 02/01/21 *Time: 08:36 Interval history: He states he slept off and on last night. Patient states he feels about the same today. He is complaining of some pain in the left side of his chest. Exam Vital signs and Labs for Last 24 Hours: Temp Pulse Resp BP Pulse Ox 98.4 F 89 18 159/82 H 97 02/01/21 07:41 02/01/21 07:41 02/01/21 07:41 02/01/21 07:41 02/01/21 07:41 Laboratory Results - last 24 hr 02/01/21 06:20: Sodium 145, Potassium 5.3 H D, Chloride 101, Carbon Dioxide 37 H, Anion Gap 12.3, BUN 34 H D, Creatinine 1.10, Estimated Creat Clear 55, Estimated GFR 67, Est GFR ( Amer) 81, Glucose 117 H, Calcium 13.6 H* I & O for Last 24 hours: Intake & Output 01/29/21 01/30/21 01/31/21 02/01/21 11:59 11:59 11:59 11:59 Intake Total 1670 / 1670 2541 / 2541 Output Total 950 / 950 650 / 650 Balance 720 / 720 1891 / 1891 Weight 129 lb 2.984 oz 129 lb 1 oz - Constitutional no acute distress - *Routine Respiratory Exam Present: rhonchi - *Routine Cardiovascular Exam Present: RRR - *Routine Abdominal Exam Present: soft, normoactive bowel sounds. Absent: tenderness - *Routine Extremities Exam Absent: cyanosis, clubbing, edema - *Routine Skin Exam Present: warm. Absent: rash - *Routine Neurological Exam Present: alert Assessment and Plan (1) Hypercalcemia Status: Acute Category: Medical Code(s): E83.52 - Hypercalcemia (2) Squamous cell lung cancer Status: Acute Qualifiers: Laterality: left Qualified Code(s): C34.92 - Malignant neoplasm of unspecified part of left bronchus or lung Category: Medical Code(s): C34.90 - Malignant neoplasm of unspecified part of unspecified bronchus or lung (3) Anemia Status: Chronic Qualifiers: Anemia type: unspecified type Qualified Code(s): D64.9 - Anemia, unspecified Category: Medical Code(s): D64.9 - Anemia, unspecified (4) Brain ischemia Status: Chronic Category: Medical Code(s): I67.82 - Cerebral ischemia (5) Chest mass Status: Acute Category: Medical Code(s): R22.2 - Localized swelling, mass and lump, trunk (6) Severe malnutrition Status: Chronic Category: Medical Code(s): E43 - Unspecified severe protein-calorie malnutrition (7) Tobacco abuse Status: Chronic Category: Medical Code(s): Z72.0 - Tobacco use (8) Anemia Status: Chronic Qualifiers: Anemia type: unspecified type Qualified Code(s): D64.9 - Anemia, unspecified Category: Medical Code(s): D64.9 - Anemia, unspecified (9) Schizophrenia Status: Chronic Category: Medical Code(s): F20.9 - Schizophrenia, unspecified - Assessment and plan all Dx Assessment and Plan for all problems:: Dr. Horta has been consulted to see the patient today for further recommendations. <Renato Frankel - Last Filed: 02/01/21 18:34> Internal Medicine - PN: Subj *Date: 02/01/21 *Time: 18:32 Exam Vital signs and Labs for Last 24 Hours: Temp Pulse Resp BP Pulse Ox 97.8 F 90 21 107/66 L 98 02/01/21 16:00 02/01/21 16:00 02/01/21 16:00 02/01/21 16:00 02/01/21 16:00 Laboratory Results - last 24 hr 02/01/21 06:20: Sodium 145, Potassium 5.3 H D, Chloride 101, Carbon Dioxide 37 H, Anion Gap 12.3, BUN 34 H D, Creatinine 1.10, Estimated Creat Clear 55, Estimated GFR 67, Est GFR ( Amer) 81, Glucose 117 H, Calcium 13.6 H* I & O for Last 24 hours: Intake & Output 01/30/21 01/31/21 02/01/21 02/02/21 11:59 11:59 11:59 11:59 Intake Total 1670 / 1670 2541 / 2541 240 / 240 Output Total 950 / 950 650 / 650 Balance 720 / 720 1891 / 1891 240 / 240 Weight 129 lb 2.984 oz 129 lb 1 oz Assessment and Plan (1) Hypercalcemia Status: Acute Category: Medical Code(s): E83.52 - Hypercalcemia (2) Squamous cell lung cancer Status: Acute Qualifiers: Laterality: left Qu
--- NOTE | 2021-02-01 10:45 | HMH.CONS ---
*Admission Date: 01/30/21 *Reason for consult:: new dx of lung cancer *History of present illness: 66 yo velazquez of the [facility] presented to ed with confusion. pt has been seeing pulm for left upper lung mass. he had ct scan demonstrating erosin in the ribs and probable abscess. he has been on abx. bx demonstrated squamous cell ca. on scan there is also evidence of diffuse pulm nodules likely c/w metastatic disease. pt calcium on admission was 14. after fluids it is 13. pt is malnourished. he is a poor historian. he thinks he has lost 30-40 lbs. he reports hemoptysis. he complains of pain. [facility] History Medical History: Reports:: Chronic Obstructive Pulmonary Disease (COPD) (Schizophrenia), Hypertension, Seizures *Have you ever received a pneumonia vaccine?: No *Have you received a flu vaccine this season?: No Other Medical History: Reports: Anemia, Other Other Surgeries: Yes: No Previous Surgery - *Social History Smoking Status: Current every day smoker Tobacco Type: cigarettes # Packs/Day (cigarettes): 1 Alcohol Intake: never Substance Use Type: denies use *Occupational Status:: disabled Housing: assisted living facility *Travel in the last 8 weeks: None Family Hx:: no Cancer, no Diabetes Review of Systems - Constitutional Reports anorexia, Reports fatigue, Reports lack of energy, Reports weight loss - *Cardiovascular Reports chest pain, Reports shortness of breath with activity, Reports shortness of breath when lying down - *Musculoskeletal Reports abnormal walking - *Neurologic Reports abnormal walking, Reports seizure-like activity (Possible), Reports weakness, Denies headache(s), Denies numbness Meds Home Medications Medication Instructions Recorded Confirmed Type Cholecalciferol (Vitamin D3) 2,000 units PO DAILY 12/28/20 01/30/21 History [Vitamin D3 1,000 Unit Cap] Divalproex Sodium [Depakote] 250 mg PO HS 12/28/20 01/30/21 History Potassium Chloride 10 meq PO BID 12/28/20 01/30/21 History hydrOXYzine HCL [Hydroxyzine HCl] 50 mg PO HS 12/28/20 01/30/21 History Albuterol Sulfate [Albuterol 18 gm IH Q4HP PRN 01/31/21 01/31/21 History Sulfate Hfa] Cyclobenzaprine HCl 5 mg PO TIDP PRN 01/31/21 01/31/21 History [Cyclobenzaprine 5mg Tab*] Ibuprofen [Ibuprofen 400mg 400 mg PO TIDP PRN 01/31/21 01/31/21 History Tablet] risperiDONE [Risperidone] 3 ml PO BID 01/31/21 01/31/21 History Allergies Allergy/AdvReac Type Severity Reaction Status Date / Time No Known Allergies Allergy Verified 01/17/21 09:39 Exam Vital signs and Labs for Last 24 Hours: Temp Pulse Resp BP Pulse Ox 98.4 F 89 18 159/82 H 97 02/01/21 07:41 02/01/21 07:41 02/01/21 07:41 02/01/21 07:41 02/01/21 07:41 Laboratory Results - last 24 hr 02/01/21 06:20: Sodium 145, Potassium 5.3 H D, Chloride 101, Carbon Dioxide 37 H, Anion Gap 12.3, BUN 34 H D, Creatinine 1.10, Estimated Creat Clear 55, Estimated GFR 67, Est GFR ( Amer) 81, Glucose 117 H, Calcium 13.6 H* I & O for Last 24 hours: Intake & Output 01/29/21 01/30/21 01/31/21 02/01/21 11:59 11:59 11:59 11:59 Intake Total 1670 / 1670 2541 / 2541 Output Total 950 / 950 650 / 650 Balance 720 / 720 1891 / 1891 Weight 129 lb 2.984 oz 129 lb 1 oz - Constitutional cachectic, chronically ill appearing, disheveled Internal Medicine - CN: Reslt - Labs CBC & Chem 7: 01/30/21 15:46 02/01/21 06:20 Labs: BMP 02/01/21 06:20 Sodium 145 Potassium 5.3 H D Chloride 101 Carbon Dioxide 37 H BUN 34 H D Creatinine 1.10 Glucose 117 H Calcium 13.6 H* Assessment and Plan (1) Hypercalcemia Status: Acute Category: Medical Code(s): E83.52 - Hypercalcemia (2) Squamous cell lung cancer Status: Acute Qualifiers: Laterality: left Qualified Code(s): C34.92 - Malignant neoplasm of unspecified part of left bronchus or lung Category: Medical Code(s): C34.90 - Malignant neoplasm of unspecifie
--- NOTE | 2021-02-01 11:25 | SW/DCPLANNER ---
Addendum entered by [facility] 02/05/21 07:39: I have received approval for EOL care from [facility] ([place]). I have faxed this to [facility]. I also faxed a packet from patients stay to [facility] to follow up at [facility]. Addendum entered by [facility] 02/02/21 14:08: Patient will be set up with [facility] once EOF care is approved. I will follow up with Alexa/N[facility] Attendant on Friday if not approved before then. Alexa at [facility] is aware of situation and stated that she can take patient pending approval of EOL care. Addendum entered by [facility] 02/02/21 12:39: [facility] has accepted this patient for admission. I have received approval for DNR and currently in the process for approval for end of life care. Patients Guardian (Mary Alice) is aware of discharge plan to [facility] and approves. I will also update Evelina with [facility]. Patient will discharge today. Alexa hurley/ [facility] has stated no further COVID testing is needed at this time. Addendum entered by [facility] 02/01/21 14:55: PT has stated that patient will need jail care placement at time of discharge. I have left a VM with Guardian regarding situation and informed Evelina with [facility]. At this time patient information has been faxed to: [facility] (Jose), [facility] (Alexa), [facility] (Nini) and [facility] ([facility]). [facility] does NOT have any beds at this time. I will continue to follow up with MD, Guardian and facilities. Roselia hurley/ [facility] has called back and stated that if patient is approved for Hospice Care they will accept this patient. Roselia has requested a call back tomorrow morning at [phone]. Addendum entered by [facility] 02/01/21 14:29: Paperwork has been completed and signed by Dr Frankel and Dr Horta regarding DNR/Hospice to [facility] ([place]) due to patient being Angelo of the [facility]. Original Note: This patient currently resides at [facility]. Dr Horta was consults on this patient today and has recommended Hospice Care. Due to patient being a Angelo of the [facility] paperwork must be completed for DNR and Hospice Care to be approved: Dr Frankel is willing to sign on paperwork and I will speak with Dr Horta as well. I spoke with patients Guardian and her hope is for patient to return to [facility] with Hospice services if physically able. I spoke with Evelina from [facility] and she has stated for me to call her back regarding discharge plans once PT evaluation is completed.
--- NOTE | 2021-02-01 14:41 | HMH.PTEV ---
Physical Therapy Evaluation Rehab PT IP Evaluation Start: 02/01/21 10:24 Freq: .once Status: Active Protocol: Document 02/01/21 14:30 VANE (Rec: 02/01/21 14:41 [email or web address] [id number]) Subjective/History History History Mr. Gonzalez is a 66-year-old male patient with a recent diagnosis of lung cancer diagnosed during [facility] admission 12/28 to 01/02/2021. During this admission he was also noted to be anemic, possible seizure activity, severe malnutrition, and tobacco use disorder. He also has a history of schizophrenia and COPD. Patient is a very poor historian and denies having any heart, lung, and stomach issues. He states that he was just weak and had difficulty with walking - copied from H&P Subjective Subjective Pt reports he feels weakn in his legs - pt is confused as to place and time Rehab PT IP Eval Objective Appearance Patient Behavior Impulsive,Confused Patient Orientation Name,Birthday Difficulty following instructions mild Speech Pattern Mumbled Ambulation Patient Able to Ambulate Yes Ambulation Observation IP General Gait Pattern Observation Ataxic Gait,Shuffling Step Ambulation Distance (feet) 10 Ambulation Assistive Device None Ambulation Ability Minimal x 1 (25% assist) Balance Ability to Arise Able, uses arms to help Sitting Balance Steady, safe Standing Balance Unsteady Dynamic Sitting Balance Ability Good Dynamic Standing Balance Ability Poor Transfers Bed Transfer Ability Independent Chair Transfer Ability Independent Sit to Stand Bed Transfer Ability Contact Guard/Hand Hold Sit to Stand Chair Transfer Ability Contact Guard/Hand Hold ROM All Extremities PT ROM Status WFL Rehab PT IP prob,goals,plan Problems Date of Evaluation: 02/01/21 PT IP Problems Transfers,Gait,Balance,Self care,Safety Rehab Potential Rehab Potential Poor Equipment Needs Assistive Devices Rolling / Wheeled Walker Plan PT Intervention Plan Transfers,Gait,Balance,Self care,Safety,Therapeutic
--- NOTE | 2021-02-01 15:21 | PC.NURSE ---
Pt is mostly alert and oriented, some periods of confusion noted. Lungs are diminished t/o. He remains on RA with O2 sats > 95%. Appetite is OK. He dislodged his IV, new one placed to RAC per H LATONIA Herrera. NS infusing at 150 mls/hr per order. Pt has slept the majority of the shift. No complaints verbalized. Will continue to monitor.
[2021-02-01 16:00] VITALS: BP 107/66; PULSE 90; RESP 21; TEMP 36.6; O2SAT 98
[2021-02-01 20:00] VITALS: BP 116/80; PULSE 111; RESP 21; TEMP 36.7; O2SAT 96
[2021-02-02 03:35] VITALS: BP 137/76; PULSE 97; RESP 17; TEMP 36.4; O2SAT 97
[2021-02-02 05:00] VITALS: BMI 16.4
--- NOTE | 2021-02-02 05:04 | PC.NURSE ---
PT IS ONLY ALERT TO SELF. PT CONTINUES TO BE CONFUSED T/O SHIFT. PT HAS BEEN INCONTINENT TO BLADDER AT TIMES. PT HAS RESTED MAJORITY OF SHIFT, TOLERATING RA WELL. PT HAS NOT C/O PAIN/NA/VO THUS FAR. BED SAFETY AND SEIZURE PADS IN PLACE. VSS WILL CONTINUE TO MONITOR.
[2021-02-02 06:36] LABS: Chloride 104 mmol/L (98-107)
[2021-02-02 06:37] LABS: Potassium 3.1 mmoL/L (3.5-5.1); Sodium 142 mmol/L (136-145)
[2021-02-02 06:40] LABS: Anion Gap 9.1 mEq/L (5-15); Blood Urea Nitrogen 26 mg/dl (9-20); Carbon Dioxide 32 mmol/L (22.0-30.0); Creatinine Clearance Estimated 57 mL/min (50-200); Estimated Glomerular Filt Rate 84 ml/min (>60); GFR (African American) 102 ML/MIN (>60); Glucose 94 mg/dl (74-100)
[2021-02-02 06:59] LABS: Calcium 13.1 mg/dl (8.4-10.2)
--- NOTE | 2021-02-02 07:05 | PC.NURSE ---
CRITICAL LAB-CA 13.1. NAME AND VERIFIED WITH LAB. RESULTS RECEIVED AT 0700. PAGED MD ISAAC, AWAITING CALL BACK AT THIS TIME.
--- NOTE | 2021-02-02 07:29 | PC.NURSE ---
CRITICAL CA REPORTED TO MD ISAAC AT THIS TIME.
[2021-02-02 08:00] VITALS: BP 122/81; PULSE 111; RESP 17; TEMP 36.9; O2SAT 96
--- NOTE | 2021-02-02 08:40 | HMH.ACPN2 ---
<Jayla Wills - Last Filed: 02/02/21 08:40> Internal Medicine - PN: Subj *Date: 02/02/21 *Time: 08:40 Interval history: Patient states he feels about the same today. He is having pain across his chest. He was able to sleep a little bit better last night. He only ate a few bites of his breakfast and states he does not have an appetite. He was seen in consultation yesterday by Dr. 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 She did not feel he was a candidate for systemic therapy. She discussed options with him and he was not interested in palliative chemotherapy and the potential side effects. She also discussed hospice with the patient and he was agreeable to a hospice consult. His hypercalcemia improved with fluids and Dr. Horta did want to consider [facility] along with pain management. Exam Vital signs and Labs for Last 24 Hours: Temp Pulse Resp BP Pulse Ox 98.4 F 111 H 17 122/81 96 02/02/21 08:00 02/02/21 08:00 02/02/21 08:00 02/02/21 08:00 02/02/21 08:00 Laboratory Results - last 24 hr 02/02/21 06:21: Sodium 142, Potassium 3.1 L D, Chloride 104, Carbon Dioxide 32 H, Anion Gap 9.1, BUN 26 H, Creatinine 0.90, Estimated Creat Clear 57, Estimated GFR 84, Est GFR ( Amer) 102 D, Glucose 94, Calcium 13.1 H* I & O for Last 24 hours: Intake & Output 01/30/21 01/31/21 02/01/21 02/02/21 11:59 11:59 11:59 11:59 Intake Total 1670 / 1670 2541 / 2541 2162 / 2162 Output Total 950 / 950 650 / 650 300 / 300 Balance 720 / 720 1891 / 1891 1862 / 1862 Weight 129 lb 2.984 oz 129 lb 1 oz 121 lb 6 oz - Constitutional no acute distress, cachectic - *Routine Respiratory Exam Present: rhonchi - *Routine Cardiovascular Exam Present: RRR - *Routine Abdominal Exam Present: soft, normoactive bowel sounds. Absent: tenderness - *Routine Extremities Exam Absent: cyanosis, clubbing, edema - *Routine Skin Exam Present: warm. Absent: rash - *Routine Neurological Exam Present: alert, oriented X3 Assessment and Plan (1) Hypercalcemia Status: Acute Category: Medical Code(s): E83.52 - Hypercalcemia (2) Squamous cell lung cancer Status: Acute Qualifiers: Laterality: left Qualified Code(s): C34.92 - Malignant neoplasm of unspecified part of left bronchus or lung Category: Medical Code(s): C34.90 - Malignant neoplasm of unspecified part of unspecified bronchus or lung (3) Anemia Status: Chronic Qualifiers: Anemia type: unspecified type Qualified Code(s): D64.9 - Anemia, unspecified Category: Medical Code(s): D64.9 - Anemia, unspecified (4) Brain ischemia Status: Chronic Category: Medical Code(s): I67.82 - Cerebral ischemia (5) Chest mass Status: Acute Category: Medical Code(s): R22.2 - Localized swelling, mass and lump, trunk (6) Severe malnutrition Status: Chronic Category: Medical Code(s): E43 - Unspecified severe protein-calorie malnutrition (7) Tobacco abuse Status: Chronic Category: Medical Code(s): Z72.0 - Tobacco use (8) Anemia Status: Chronic Qualifiers: Anemia type: unspecified type Qualified Code(s): D64.9 - Anemia, unspecified Category: Medical Code(s): D64.9 - Anemia, unspecified (9) Schizophrenia Status: Chronic Category: Medical Code(s): F20.9 - Schizophrenia, unspecified - Assessment and plan all Dx Assessment and Plan for all problems:: Care management is going to find placement for the patient and he will be discharged as a hospice patient. <Renato Frankel - Last Filed: 02/02/21 10:19> Internal Medicine - PN: Subj *Date: 02/02/21 *Time: 10:14 Exam Vital signs and Labs for Last 24 Hours: Temp Pulse Resp BP Pulse Ox 98.4 F 111 H 17 122/81 96 02/02/21 08:00 02/02/21 08:00 02/02/21 08:00 02/02/21 08:00 02/02/21 08:00 Laboratory Results - last 24 hr
--- NOTE | 2021-02-02 12:06 | [facility].DCSUM ---
General - General Admission date:: 01/30/21 <Renato Frankel - 02/02/21 13:28> 01/30/21 <Jayla Wills - 02/02/21 12:21> Discharge date: 02/02/21 <NigelJayla quijano - 02/02/21 12:21> HPI HPI: Mr. Henley is a 66-year-old male patient with a recent diagnosis of lung cancer diagnosed during [facility] admission 12/28 to 01/02/2021. During this admission he was also noted to be anemic, possible seizure activity, severe malnutrition, and tobacco use disorder. He also has a history of schizophrenia and COPD. Patient is a very poor historian and denies having any heart, lung, and stomach issues. He states that he was just weak and had difficulty with walking. Following is the note from the emergency room: Brought in by ambulance from assisted living facility in [place]. The patient is a poor historian . Per prior records he has schizoaffective disorder. He says he is here because he is generally weak, especially his legs. He says that today his legs gave out on him. He says he did not pass out. He says he has not been eating and drinking well. Denies chest pain or shortness of breath. Denies vomiting or diarrhea. Denies fever. Complains of pain in his neck and back. Patient had follow-up visit with Dr. Zapata on 01/17/2021. He noted lung mass with abscess eroding into the 6th rib with partial fracture and into the chest wall musculature. An oncology appointment was scheduled. He was noted to use albuterol inhaler 3-4 times daily. On admission white blood cell count was 8700 with a hemoglobin of 10.4 hematocrit 31.7. Blood chemistries show sodium of 133 and potassium of 4.3. Calcium was 13.4 on admission and this a.m. is 14.4. PTH is low at 7.3. CXR results as follows: IMPRESSION: Overall there has been some improvement in the consolidation in the left upper lobe centrally with persistent peripheral consolidation and improvement in the left axillary gas. Prominent interstitium in the right mid and upper lung zone with a few scattered small nodular opacities which may be inflammatory/infectious or due to metastatic foci. He was admitted for IVF and calcium monitoring. This a.m. patient states he did not sleep much. He has eaten well for breakfast. He denies pain and shortness of breath. <Jayla Wills - 02/02/21 12:21> Hospital Course Hospital Course: Patient was admitted and started on IV fluids. His calcium was elevated and improved slightly with IV fluids. He was given calcitonin with minimal improvement in the calcium as well. He complained of pain in his chest. He had been confused and agitated and was started back on his Risperdal, which seemed to help the agitation. Dr. Hrota was consulted for further recommendations. He did not seem to comprehend the gravity of his diagnosis of lung cancer. Dr. Horta saw the patient and felt his cancer was stage IV not curable. She did not feel he was a candidate for systemic therapy. She did discuss options with him and he was not interested in palliative chemotherapy. She also discussed hospice with the patient and he was agreeable to a hospice consult. She also recommended starting the patient on Zometa due to his calcium levels. It was felt the best plan of care was with hospice for DNR/comfort measures only to manage his end-of-life care. Care management found a bed for him at [facility] and he is stable to be discharged to [facility] with hospice. <Jayla Wills - 02/02/21 12:21> Objective Vital signs: Temp Pulse Resp BP Pulse Ox 98.4 F 111 H 17 122/81 96 02/02/21 08:00 02/02/21 08:00 02/02/21 08:00 02/02/21 08:00 02/02/21 08:00 <Renato Frankel - 02/02/21 13:28> Temp Pulse Resp BP Pulse Ox 98.4 F 111 H 17 122/81 96 02/02/21 08:00 02/02/21 08:00 02/02/21 08:00 02/02/21 08:00 02/02/21 08:00 <Jayla Wills - 02/02/21 12:21> Narrative: - Constitutional no acute distress, cachectic - *Routine Respirat
== END 2021-02-02 14:57 | DRG 640 ==
LOC: ER 17:27 → 2ND 19:26
PROVIDERS: Admitting Provider Family Medicine; Emergency Provider Emergency Medicine; Visit Provider Family Medicine
DX: E83.52 Hypercalcemia (principal); E43 Unspecified severe protein-calorie malnutrition; C34.92 Malignant neoplasm of unspecified part of left bronchus or lung; Z68.1 Body mass index [BMI] 19.9 or less, adult; I67.82 Cerebral ischemia; R64 Cachexia; C79.51 Secondary malignant neoplasm of bone; F17.210 Nicotine dependence, cigarettes, uncomplicated; F20.9 Schizophrenia, unspecified
CPT/HCPCS: 36415; 71046; 80048; 80076; 80164; 83735; 83970; 84100; 84484; 85025; 93005; 96365; 97110; 97162; 97530; 99284; J0630; J3489; U0003